=== PATIENT | female | born 1935 | race Caucasian/White ===

== ENCOUNTER 2017-03-09 09:05 | Emergency (ER) | payer MEDICARE, OTHER ==
--- NOTE | 2017-03-09 09:41 | ER Document Report ---
Doctor's Note Notes: 03/09/17 09:40 81-year-old female presents with complaints of shortness of breath productive cough over the past few days. Patient denies any history of COPD asthma or respiratory issues. Patient receives IVIG. Patient is not on oxygen at home Patient satting 89% on room air on arrival I have greeted and performed a rapid initial assessment of this patient. A comprehensive ED assessment and evaluation of the patient, analysis of test results and completion of the medical decision making process will be conducted by additional ED providers. PHYSICAL EXAMINATION: GENERAL: Well-appearing, well-nourished and in no acute distress. Patient is satting 89% on room air noted to be 98% on 2 L nasal cannula HEAD: Atraumatic, normocephalic. EYES: Pupils equal round extraocular movements intact, conjunctiva are normal. ENT: Nares patent NECK: Normal range of motion LUNGS: Rhonchorous at the bases no respiratory distress Musculoskeletal: Normal range of motion NEUROLOGICAL: Normal speech, normal gait. PSYCH: Normal mood, normal affect. SKIN: Warm, Dry, normal turgor, no rashes or lesions noted.
--- NOTE | 2017-03-09 10:39 | ER Document Report ---
ED Respiratory Problem - General Chief Complaint: Cough Stated Complaint: COUGH Notes: Patient is an 81-year-old female nonsmoker who presents emergency Department complaining of productive cough, shortness of breath, BRYANT since Saturday. She denies any fevers but admits to chills. Denies any history of COPD, asthma. Patient does receive IVIG for her chronic idiopathic demyelinating polyneuropathy. Past medical history significant for hypothyroidism, GERD, CIDP, hiatal hernia Past surgical history significant for close hysterectomy, hiatal hernia reduction, stress test December 2015 Social history denies any tobacco use, alcohol or drug use. Allergies to amoxicillin primary care provider is Dr. Tyler TRAVEL OUTSIDE OF THE [place] IN LAST 30 DAYS: No - Related Data Allergies/Adverse Reactions: amoxicillin [Amoxicillin] Allergy (Severe, Verified 03/09/17 09:33) rash cephalexin monohydrate [From Keflex] Allergy (Severe, Verified 03/09/17 09:33) rash sulfamethoxazole [From Bactrim] Allergy (Severe, Verified 03/09/17 09:33) rash trimethoprim [From Bactrim] Allergy (Severe, Verified 03/09/17 09:33) rash eggs Allergy (Intermediate, Uncoded 03/09/17 09:33) N&V Past Medical History - Social History Smoking Status: Never Smoker Chew tobacco use (# tins/day): No Frequency of alcohol use: None Drug Abuse: None Family History: Other - Not reviewed at this time. Patient has suicidal ideation: No Patient has homicidal ideation: No - Past Medical History Cardiac Medical History: Reports: Hx Hypercholesterolemia - meds x 2 years Denies: Hx Atrial Fibrillation, Hx Congestive Heart Failure, Hx Coronary Artery Disease, Hx Heart Attack, Hx Hypertension, Hx Peripheral Vascular Disease , Hx Pulmonary Embolism, Hx Heart Murmur Pulmonary Medical History: Reports: Hx Pneumonia - "years ago" s, hospitalized x 1 day Denies: Hx Asthma, Hx Bronchitis, Hx COPD, Hx Respiratory Failure, Hx Sleep Apnea, Hx Tuberculosis Neurological Medical History: Denies: Hx Cerebrovascular Accident, Hx Seizures Renal/ Medical History: Reports: Hx Kidney Stones - "passed", no surgery required. Denies: Hx End Stage Renal Disease, Hx Peritoneal Dialysis Malignancy Medical History: Denies: Hx Leukemia, Hx Lung Cancer GI Medical History: Reports: Hx Gastritis, Hx Gastroesophageal Reflux Disease, Hx Hiatal Hernia - per chest CT 02/01/11. Denies: Hx Crohn's Disease, Hx Irritable Bowel, Hx Liver Failure, Hx Ulcer Musculoskeltal Medical History: Reports Hx Arthritis, Denies Hx Fibromyalgia, Denies Hx Muscular Dystrophy Traumatic Medical History: Denies: Hx Fractures Infectious Medical History: Denies: Hx HIV Past Surgical History: Reports: Hx Cholecystectomy - laparoscopic, Hx Hysterectomy, Hx Orthopedic Surgery - knee replacement. Denies: Hx Appendectomy , Hx Bowel Surgery, Hx Section, Hx Colostomy, Hx Coronary Artery Bypass Graft, Hx Gastric Bypass Surgery, Hx Herniorrhaphy, Hx Mastectomy, Hx Pacemaker, Hx Tonsillectomy, Hx Tubal Ligation - Immunizations Immunizations up to date: Yes Hx Diphtheria, Pertussis, Tetanus Vaccination: Yes Hx Pneumococcal Vaccination: 08/13/13 Review of Systems - Review of Systems Constitutional: See HPI EENT: No symptoms reported Cardiovascular: No symptoms reported Respiratory: See HPI Gastrointestinal: No symptoms reported Genitourinary: No symptoms reported -: Yes All other systems reviewed and negative Physical Exam - Vital signs Vitals: Temp Pulse Resp BP Pulse Ox 98.3 F 68 19 122/57 L 89 L 03/09/17 09:18 03/09/17 09:18 03/09/17 09:18 03/09/17 09:18 03/09/17 09:18 Interpretation: Hypoxic - Notes Notes: PHYSICAL EXAM GENERAL: Alert, interacts well. HEAD: Normocephalic, atraumatic. EYES: Pupils equal, round, and reactive to light. Extraocular movements intact. ENT: Oral mucosa moist, tongue midline. NECK: Full range of motion. Supple. Trachea midline. LUNGS: Clear to auscultation bilaterally, no wheezes, rales, or rhonchi. No respiratory distress. HEART: Regular rate and rhythm. No murmurs, gallops, or rubs. ABDOMEN: Soft, nondistended, nontender. No guarding, rebound, or rigidity.. Bowel sounds present in all 4 quadrants. EXTREMITIES: Moves all 4 extremities spontaneously. No edema, radial and dorsalis pedis pulses 2/4 bilaterally. No cyanosis. NEUROLOGICAL: Alert and oriented x4. Normal speech. PSYCH: Normal affect, normal mood. SKIN: Warm, dry, normal turgor. No rashes or lesions noted. Course - Re-evaluation Re-evalutation: 03/09/17 18:07 patient is a 81 year old female who is hemodynamically stable, no acute distress and afebrile. Patient was satting 100% on 1 L nasal cannula. Weaned off in satting 96% on room air. No evidence of leukocytosis, anemia on CBC, electrolyte abnormalities, abnormal renal/hepatic/pancreatic function. UA with leuk esterase with minimal bacteria. Sent for urine culture. Chem shows elevated BNP at 2300. Patient without CXR evidence of CHF. Patient has ambulated in the department without O2 and maintaining oxygen sats at 96%. Will discharge patient home on short course of lasix and instruction to follow up with PCP - Vital Signs Vital signs: Temp Pulse Resp BP Pulse Ox 97.2 F 74 16 126/64 H 96 03/09/17 15:04 03/09/17 15:04 03/09/17 15:04 03/09/17 15:04 03/09/17 15:04 - Laboratory Result Diagrams: 03/09/17 10:50 03/09/17 10:50 Laboratory results interpreted by me: 03/09/17 03/09/17 03/09/17 10:50 10:50 10:50 Seg Neutrophils % 78.1 H Glucose 111 H AST 69 H Alkaline Phosphatase 143 H NT-Pro-B Natriuret Pep 2320 H Total Protein 8.8 H Urine Protein Urine Urobilinogen Ur Leukocyte Esterase Urine Ascorbic Acid 03/09/17 13:25 Seg Neutrophils % Glucose AST Alkaline Phosphatase NT-Pro-B Natriuret Pep Total Protein Urine Protein 30 H Urine Urobilinogen 2.0 H Ur Leukocyte Esterase MODERATE H Urine Ascorbic Acid 40 H - Diagnostic Test Radiology reviewed: Image reviewed, Reports reviewed - EKG Interpretation by Me EKG shows normal: Sinus rhythm Rate: Normal Rhythm: NSR When compared to previous EKG there are: No significant change Discharge - Discharge Clinical Impression: Cough Condition: Good Disposition: HOME, SELF-CARE Additional Instructions: You have evidence of fluid retention, this may be due to heart failure You need to follow up with your primary care physician Dr. Tyler this coming week Please take the lasix as prescribed Prescriptions: Furosemide [Lasix] 20 mg PO DAILY #3 tablet Referrals: TRISTON TYLER MD [Primary Care Provider] - Follow up in 3-5 days
[2017-03-09 11:19] LABS: PROTHROMBIN TIME 13.7 SEC (11.4-15.4)
[2017-03-09 11:22] LABS: ABSOLUTE EOSINOPHILS # (AUTO) 0.1 10^3/uL (0.0-0.6); ABSOLUTE LYMPHOCYTES (AUTO) 1.3 10^3/uL (0.5-4.7); ABSOLUTE MONOCYTES (AUTO) 0.7 10^3/uL (0.1-1.4); ABSOLUTE NEUT (AUTO) 7.5 10^3/uL (1.7-8.2); BASOPHILS % (AUTO) 0.2 % (0-2); EOSINOPHILS % (AUTO) 0.6 % (0-6); HEMOGLOBIN 12.8 g/dL (12.0-15.5); HGB HCT DIFFERENCE 1.4; LYMPHOCYTES % (AUTO) 13.4 % (13-45); MEAN CORPUSCULAR HEMOGLOBIN 31.4 pg (27.0-33.4); MEAN CORPUSCULAR HGB CONC 34.5 g/dL (32.0-36.0); MEAN CORPUSCULAR VOLUME 91 fl (80-97); MONOCYTES % (AUTO) 7.7 % (3-13); RED BLOOD COUNT 4.08 10^6/uL (3.72-5.28); RED CELL DISTRIBUTION WIDTH 13.2 % (11.5-14.0); SEGMENTED NEUTROPHILS % (AUTO) 78.1 % (42-78); WHITE BLOOD COUNT 9.6 10^3/uL (4.0-10.5)
[2017-03-09 11:40] LABS: ALANINE AMINOTRANSFERASE 46 U/L (9-52); ALBUMIN 3.9 g/dL (3.5-5.0); ALKALINE PHOSPHATASE 143 U/L (38-126); ANION GAP 15 (5-19); ASPARTATE AMINO TRANSFERASE 69 U/L (14-36); BILIRUBIN,DIRECT 0.4 mg/dL (0.0-0.4); BLOOD UREA NITROGEN 15 mg/dL (7-20); CALCIUM 9.2 mg/dL (8.4-10.2); CARBON DIOXIDE 24 mmol/L (22-30); CHLORIDE 103 mmol/L (98-107); CREATININE RESULT 0.79 mg/dL (0.52-1.25); GLUCOSE 111 mg/dL (75-110); SODIUM 142.4 mmol/L (137-145); TOTAL PROTEIN 8.8 g/dL (6.3-8.2)
[2017-03-09 12:18] LABS: VENOUS BLOOD HCO3 27.1 mmol/L (20-32); VENOUS BLOOD PCO2 49.5 mmHg (35-63); VENOUS BLOOD PH 7.36 (7.30-7.42)
[2017-03-09] MEDS ORDERED: IPRATROPIUM/ALBUTEROL 0.5-2.5 MG/3 ML AMPUL NEB ONE (12:41)
[2017-03-09 14:11] LABS: APPEARANCE,URINE SLIGHTLY-CLOUDY; BILIRUBIN,URINE NEGATIVE (NEGATIVE); GLUCOSE, URINE NEGATIVE (NEGATIVE); KETONES,URINE NEGATIVE (NEGATIVE); LEUKOCYTE ESTERASE,URINE MODERATE (NEGATIVE); NITRITE,URINE NEGATIVE (NEGATIVE); PROTEIN,URINE 30 mg/dL (NEGATIVE); URINE SPECIFIC GRAVITY 1.017
[2017-03-09] MEDS ORDERED: FUROSEMIDE 20 MG TABLET PO ONE (14:35)
[2017-03-09 16:27] VITALS: BP 126/64
--- NOTE | 2017-03-10 10:22 | EKG REPORT ---
SEVERITY:- ABNORMAL ECG - SINUS RHYTHM LEFT VENTRICULAR HYPERTROPHY INFERIOR INFARCT, AGE INDETERMINATE ANTEROLATERAL Q WAVES, PROBABLY DUE TO LVH : Confirmed by: Lisa Trujillo 10-Mar-2017 10:22:31
== END 2017-03-09 15:05 | disposition home or self-care (01) ==
LOC: ER 09:05
DX: R05 Cough (principal); R06.02 Shortness of breath; E03.9 Hypothyroidism, unspecified; K21.9 Gastro-esophageal reflux disease without esophagitis
CPT/HCPCS: 93005; 94640; 99284; 36415; 87040; 87086; 84443; 85025; 85610; 80053; 81001; 82803; 83605; 83880; 71010; 93010; A9270 ×2; J7620

== ENCOUNTER → 2017-03-13 | Outpatient (CLI) | payer MEDICARE, OTHER ==
[2017-03-13 15:05] LABS: ALANINE AMINOTRANSFERASE 34 U/L (9-52); ALBUMIN 3.5 g/dL (3.5-5.0); ALKALINE PHOSPHATASE 108 U/L (38-126); ANION GAP 17 (5-19); ASPARTATE AMINO TRANSFERASE 44 U/L (14-36); BILIRUBIN,DIRECT 0.4 mg/dL (0.0-0.4); BILIRUBIN,TOTAL 0.7 mg/dL (0.2-1.3); BLOOD UREA NITROGEN 11 mg/dL (7-20); CARBON DIOXIDE 25 mmol/L (22-30); CHLORIDE 100 mmol/L (98-107); CREATININE RESULT 0.81 mg/dL (0.52-1.25); GLUCOSE 109 mg/dL (75-110); POTASSIUM 4.2 mmol/L (3.6-5.0); SODIUM 142.3 mmol/L (137-145); TOTAL PROTEIN 8.2 g/dL (6.3-8.2)
== END ==
LOC: OD 13:50
PROVIDERS: ATTEND Obstetrics & Gynecology
DX: I50.20 Unspecified systolic (congestive) heart failure (principal)
CPT/HCPCS: 36415; 71020; 80053; 83880

== ENCOUNTER → 2017-03-18 | Outpatient (CLI) | payer MEDICARE, OTHER ==
[2017-03-18 14:29] LABS: HEMATOCRIT 33.3 % (36.0-47.0); HEMOGLOBIN 11.3 g/dL (12.0-15.5); HGB HCT DIFFERENCE 0.6; MEAN CORPUSCULAR HGB CONC 33.9 g/dL (32.0-36.0); MEAN CORPUSCULAR VOLUME 91 fl (80-97); RED BLOOD COUNT 3.65 10^6/uL (3.72-5.28); RED CELL DISTRIBUTION WIDTH 13.5 % (11.5-14.0); WHITE BLOOD COUNT 6.5 10^3/uL (4.0-10.5)
[2017-03-18 14:47] LABS: ALANINE AMINOTRANSFERASE 38 U/L (9-52); ALBUMIN 3.3 g/dL (3.5-5.0); ALKALINE PHOSPHATASE 126 U/L (38-126); ANION GAP 14 (5-19); ASPARTATE AMINO TRANSFERASE 46 U/L (14-36); BILIRUBIN,DIRECT 0.4 mg/dL (0.0-0.4); BILIRUBIN,TOTAL 0.6 mg/dL (0.2-1.3); BLOOD UREA NITROGEN 10 mg/dL (7-20); CARBON DIOXIDE 27 mmol/L (22-30); CHLORIDE 101 mmol/L (98-107); CREATININE RESULT 0.75 mg/dL (0.52-1.25); GLUCOSE 99 mg/dL (75-110); POTASSIUM 4.2 mmol/L (3.6-5.0); SODIUM 142.4 mmol/L (137-145); TOTAL PROTEIN 7.8 g/dL (6.3-8.2)
== END ==
LOC: OD 13:49
PROVIDERS: ATTEND Obstetrics & Gynecology
DX: R42 Dizziness and giddiness (principal); E03.9 Hypothyroidism, unspecified; I50.21 Acute systolic (congestive) heart failure
CPT/HCPCS: 36415; 80053; 83880; 84443; 85027

== ENCOUNTER 2017-12-18 15:24 | Emergency (ER) | payer MEDICARE, OTHER ==
[2017-12-18] MEDS ORDERED: NORMAL SALINE 1000 ML 1,000 ML IV ONE (17:37)
--- NOTE | 2017-12-18 17:38 | ER Document Report ---
ED Medical Screen (RME) - General Chief Complaint: Nose Bleed Stated Complaint: NOSE BLEED AND LIGHT HEADEDNESS Time Seen by Provider: 12/18/17 17:37 Mode of Arrival: Ambulatory Information source: Patient Notes: Patient states she has been lightheaded and dizzy today with some nosebleeds. She states she normally has high blood pressure and takes blood pressure medications. TRAVEL OUTSIDE OF THE [place] IN LAST 30 DAYS: No - Related Data Allergies/Adverse Reactions: amoxicillin [Amoxicillin] Allergy (Severe, Verified 12/18/17 15:24) rash cephalexin monohydrate [From Keflex] Allergy (Severe, Verified 12/18/17 15:24) rash sulfamethoxazole [From Bactrim] Allergy (Severe, Verified 12/18/17 15:24) rash trimethoprim [From Bactrim] Allergy (Severe, Verified 12/18/17 15:24) rash eggs Allergy (Intermediate, Uncoded 12/18/17 15:24) N&V Past Medical History - Social History Chew tobacco use (# tins/day): No Frequency of alcohol use: None Drug Abuse: None - Past Medical History Cardiac Medical History: Reports: Hx Hypercholesterolemia - meds x 2 years Denies: Hx Atrial Fibrillation, Hx Congestive Heart Failure, Hx Coronary Artery Disease, Hx Heart Attack, Hx Hypertension, Hx Peripheral Vascular Disease , Hx Pulmonary Embolism, Hx Heart Murmur Pulmonary Medical History: Reports: Hx Pneumonia - "years ago" 1959's, hospitalized x 1 day Denies: Hx Asthma, Hx Bronchitis, Hx COPD, Hx Respiratory Failure, Hx Sleep Apnea, Hx Tuberculosis Neurological Medical History: Denies: Hx Cerebrovascular Accident, Hx Seizures Renal/ Medical History: Reports: Hx Kidney Stones - "passed", no surgery required. Denies: Hx End Stage Renal Disease, Hx Peritoneal Dialysis Malignancy Medical History: Denies: Hx Leukemia, Hx Lung Cancer GI Medical History: Reports: Hx Gastritis, Hx Gastroesophageal Reflux Disease, Hx Hiatal Hernia - per chest CT 02/01/11. Denies: Hx Crohn's Disease, Hx Irritable Bowel, Hx Liver Failure, Hx Pancreatitis, Hx Ulcer Musculoskeltal Medical History: Reports Hx Arthritis, Denies Hx Fibromyalgia, Denies Hx Muscular Dystrophy Traumatic Medical History: Denies: Hx Fractures Infectious Medical History: Denies: Hx HIV Past Surgical History: Reports: Hx Cholecystectomy - laparoscopic, Hx Hysterectomy, Hx Orthopedic Surgery - knee replacement. Denies: Hx Appendectomy , Hx Bowel Surgery, Hx Section, Hx Colostomy, Hx Coronary Artery Bypass Graft, Hx Gastric Bypass Surgery, Hx Herniorrhaphy, Hx Mastectomy, Hx Pacemaker, Hx Tonsillectomy, Hx Tubal Ligation - Immunizations Immunizations up to date: Yes Hx Diphtheria, Pertussis, Tetanus Vaccination: Yes Physical Exam - Vital signs Vitals: Temp Pulse Resp BP Pulse Ox 98.2 F 94 22 H 85/66 L 99 12/18/17 15:40 12/18/17 15:40 12/18/17 15:40 12/18/17 15:40 12/18/17 15:40 Course - Vital Signs Vital signs: Temp Pulse Resp BP Pulse Ox 98.2 F 94 22 H 85/66 L 99 12/18/17 15:40 12/18/17 15:40 12/18/17 15:40 12/18/17 15:40 12/18/17 15:40
[2017-12-18 18:32] LABS: ABSOLUTE EOSINOPHILS # (AUTO) 0.1 10^3/uL (0.0-0.6); ABSOLUTE LYMPHOCYTES (AUTO) 2.1 10^3/uL (0.5-4.7); ABSOLUTE MONOCYTES (AUTO) 0.7 10^3/uL (0.1-1.4); ABSOLUTE NEUT (AUTO) 1.8 10^3/uL (1.7-8.2); BASOPHILS % (AUTO) 0.7 % (0-2); EOSINOPHILS % (AUTO) 1.2 % (0-6); HEMATOCRIT 34.7 % (36.0-47.0); HEMOGLOBIN 11.6 g/dL (12.0-15.5); MEAN CORPUSCULAR HEMOGLOBIN 28.9 pg (27.0-33.4); MEAN CORPUSCULAR HGB CONC 33.3 g/dL (32.0-36.0); MEAN CORPUSCULAR VOLUME 87 fl (80-97); MONOCYTES % (AUTO) 14.7 % (3-13); PLATELET COUNT 283 10^3/uL (150-450); RED BLOOD COUNT 3.99 10^6/uL (3.72-5.28); RED CELL DISTRIBUTION WIDTH 15.5 % (11.5-14.0); SEGMENTED NEUTROPHILS % (AUTO) 38.4 % (42-78); TOTAL CELLS COUNTED % (AUTO) 100 %; WHITE BLOOD COUNT 4.8 10^3/uL (4.0-10.5)
[2017-12-18 19:27] LABS: APPEARANCE,URINE SLIGHTLY-CLOUDY; BILIRUBIN,URINE NEGATIVE (NEGATIVE); COLOR,URINE YELLOW; GLUCOSE, URINE NEGATIVE (NEGATIVE); KETONES,URINE NEGATIVE (NEGATIVE); LEUKOCYTE ESTERASE,URINE TRACE (NEGATIVE); NITRITE,URINE NEGATIVE (NEGATIVE); PROTEIN,URINE NEGATIVE (NEGATIVE); URINE SPECIFIC GRAVITY 1.015; UROBILINOGEN,URINE NEGATIVE mg/dL (<2.0)
[2017-12-18 20:20] LABS: ALANINE AMINOTRANSFERASE 18 U/L (9-52); ALBUMIN 4.1 g/dL (3.5-5.0); ALKALINE PHOSPHATASE 78 U/L (38-126); ANION GAP 10 (5-19); ASPARTATE AMINO TRANSFERASE 35 U/L (14-36); BILIRUBIN,DIRECT 0.1 mg/dL (0.0-0.4); BILIRUBIN,TOTAL 0.3 mg/dL (0.2-1.3); BLOOD UREA NITROGEN 15 mg/dL (7-20); CALCIUM 9.4 mg/dL (8.4-10.2); CARBON DIOXIDE 27 mmol/L (22-30); CHLORIDE 104 mmol/L (98-107); GLUCOSE 89 mg/dL (75-110); SODIUM 141.4 mmol/L (137-145); TOTAL PROTEIN 7.7 g/dL (6.3-8.2)
--- NOTE | 2017-12-18 21:03 | ER Document Report ---
ED General - General Chief Complaint: Nose Bleed Stated Complaint: NOSE BLEED AND LIGHT HEADEDNESS Time Seen by Provider: 12/18/17 17:37 Mode of Arrival: Ambulatory Notes: 82-year-old female presented ED for lightheadedness dizziness and some nosebleeds. She states the nosebleed has been stopped since morning time. She stated she was no longer lightheaded or dizzy while in the emergency room but when she was sitting up in the front she did feel lightheaded. Blood pressure was stable when I examined her. TRAVEL OUTSIDE OF THE [place] IN LAST 30 DAYS: No - HPI Onset: This morning Onset/Duration: Better Quality of pain: No pain Severity: None Pain Level: Denies Associated symptoms: Other - Nosebleed dizziness when seen in the pit but not when I examined her in the emergency room Exacerbated by: Denies Relieved by: Denies Similar symptoms previously: Yes Recently seen / treated by doctor: Yes - Related Data Allergies/Adverse Reactions: amoxicillin [Amoxicillin] Allergy (Severe, Verified 12/18/17 15:24) rash cephalexin monohydrate [From Keflex] Allergy (Severe, Verified 12/18/17 15:24) rash sulfamethoxazole [From Bactrim] Allergy (Severe, Verified 12/18/17 15:24) rash trimethoprim [From Bactrim] Allergy (Severe, Verified 12/18/17 15:24) rash eggs Allergy (Intermediate, Uncoded 12/18/17 15:24) N&V Past Medical History - General Information source: Patient - Social History Smoking Status: Never Smoker Chew tobacco use (# tins/day): No Frequency of alcohol use: None Drug Abuse: None Lives with: Family Family History: Other - Not reviewed at this time. Patient has suicidal ideation: No Patient has homicidal ideation: No - Past Medical History Cardiac Medical History: Reports: Hx Hypercholesterolemia - meds x 2 years Pulmonary Medical History: Reports: Hx Pneumonia - "years ago" 1960's, hospitalized x 1 day EENT Medical History: Reports: None Neurological Medical History: Reports: None Endocrine Medical History: Reports: None Renal/ Medical History: Reports: Hx Kidney Stones - "passed", no surgery required Malignancy Medical History: Reports: None GI Medical History: Reports: Hx Gastritis, Hx Gastroesophageal Reflux Disease, Hx Hiatal Hernia - per chest CT 02/01/11 Musculoskeltal Medical History: Reports Hx Arthritis Skin Medical History: Reports None Psychiatric Medical History: Reports: None Traumatic Medical History: Reports: None Infectious Medical History: Reports: None Past Surgical History: Reports: Hx Cholecystectomy - laparoscopic, Hx Hysterectomy, Hx Orthopedic Surgery - knee replacement - Immunizations Immunizations up to date: Yes Hx Diphtheria, Pertussis, Tetanus Vaccination: Yes Hx Pneumococcal Vaccination: 08/13/13 Review of Systems - Review of Systems Constitutional: No symptoms reported EENT: Other - Nosebleed in the morning none in the emergency room Cardiovascular: Dizziness - When seen in pit not when seen in the ED, Lightheaded Respiratory: No symptoms reported Gastrointestinal: No symptoms reported Genitourinary: No symptoms reported Female Genitourinary: No symptoms reported Musculoskeletal: No symptoms reported Skin: No symptoms reported Hematologic/Lymphatic: No symptoms reported Neurological/Psychological: No symptoms reported -: Yes All other systems reviewed and negative Physical Exam - Vital signs Vitals: Temp Pulse Resp BP Pulse Ox 98.2 F 94 22 H 85/66 L 99 12/18/17 15:40 12/18/17 15:40 12/18/17 15:40 12/18/17 15:40 12/18/17 15:40 Interpretation: Normal - General General appearance: Appears well, Alert - HEENT Head: Normocephalic, Atraumatic Eyes: Normal Pupils: PERRL - Respiratory Respiratory status: No respiratory distress Chest status: Nontender Breath sounds: Normal Chest palpation: Normal - Cardiovascular Rhythm: Regular Heart sounds: Normal auscultation Murmur: No - Abdominal Inspection: Normal Distension: No distension Bowel sounds: Normal Tenderness: Nontender Organomegaly: No organomegaly - Back Back: Normal, Nontender - Extremities General upper extremity: Normal inspection, Nontender, Normal color, Normal ROM , Normal temperature General lower extremity: Normal inspection, Nontender, Normal color, Normal ROM , Normal temperature, Normal weight bearing. No: Aydee's sign - Neurological Neuro grossly intact: Yes Cognition: Normal Orientation: AAOx4 [place] Coma Scale Eye Opening: Spontaneous [place] Coma Scale Verbal: Oriented [place] Coma Scale Motor: Obeys Commands [place] Coma Scale Total: 15 Speech: Normal Motor strength normal: LUE, RUE, LLE, RLE Sensory: Normal - Psychological Associated symptoms: Normal affect, Normal mood - Skin Skin Temperature: Warm Skin Moisture: Dry Skin Color: Normal Course - Re-evaluation Re-evalutation: 12/19/17 08:43 Discussed labs and assessment with Dr. Antoine as he had seen the patient in [facility]. He reviewed the lab results stated that it would be okay for the patient to be discharged home. The patient was discharged home around 9 PM. - Vital Signs Vital signs: Temp Pulse Resp BP Pulse Ox 97.9 F 94 15 124/63 98 12/18/17 21:15 12/18/17 15:40 12/18/17 21:01 12/18/17 21:01 12/18/17 21:01 - Laboratory Result Diagrams: 12/18/17 18:14 12/18/17 19:35 Laboratory results interpreted by me: 12/18/17 12/18/17 18:14 19:00 Hgb 11.6 L Hct 34.7 L RDW 15.5 H Seg Neutrophils % 38.4 L Monocytes % 14.7 H Urine Blood SMALL H Ur Leukocyte Esterase TRACE H Discharge - Discharge Clinical Impression: Bleeding nose Condition: Stable Disposition: HOME, SELF-CARE Additional Instructions: Nosebleed Instructions There is a significant chance of re-bleeding following a nosebleed. Proper care makes this less likely. Do not touch the nose for 24 hours. Do not blow the nose forcefully for one week. After 24 hours, gently apply Vaseline ointment to both nostrils with the tip of a finger, three times a day, for one week. It's normal to have a bloody mucous discharge for a few days. If active bleeding recurs, blow all the blood from the nose, then sit quietly and pinch the nose as firmly as possible for 10 minutes. If this does not stop the bleeding, return for further care. If packing was left in the nose and it starts to come out of the nostril, either tuck it back in or cut it off. Don't pull it out. Return for recheck and removal of the packing when instructed. Persons with frequent nosebleeds should avoid aspirin (unless prescribed for another reason). Humidity in the bedroom, and petroleum jelly applied to the nostrils at night may help. DIZZINESS: Under normal circumstances, your sense of balance is controlled by a number of signals that your brain receives from several locations: Eyes. No matter what your position, visual signals help you determine where your body is in space and how it's moving. Sensory nerves. These are in your skin, muscles and joints. Sensory nerves send messages to your brain about body movements and positions. Inner ear. The organ of balance in your inner ear is the vestibular labyrinth. It includes loop-shaped structures (semicircular canals) that contain fluid and fine, hair-like sensors that monitor the rotation of your head. Near the semicircular canals are the utricle and saccule, which contain tiny particles called otoconia ([id number]). These particles are attached to sensors that help detect gravity and acwa-ogj-zkjfo motion. Good balance depends on at least two of these three sensory systems working well. For instance, closing your eyes while washing your hair in the shower doesn't mean you'll lose your balance. Signals from your inner ear and sensory nerves help keep you upright. However, if your central nervous system can't process signals from all of these locations, if the messages are contradictory, or if the sensory systems aren't functioning properly, you may experience loss of balance. Dizziness may have a number of potential causes. These may include: Vertigo Vertigo - the false sense of motion or spinning - is the most common symptom of dizziness. Sitting up or moving around may make it worse. Sometimes vertigo is severe enough to cause nausea and vomiting. Vertigo usually results from a problem with the nerves and the structures of the balance mechanism in your inner ear (vestibular system), which sense movement and changes in your head position. Abnormal rhythmic eye movements ( nystagmus) almost always accompany vertigo. Causes of vertigo may include: Benign paroxysmal positional vertigo (BPPV). BPPV involves intense, brief episodes of vertigo associated with a change in the position of your head, often when you turn over in bed or sit up in the morning. It occurs when normal calcium carbonate crystals (otoconia) break loose and fall into the wrong part of the canals in your inner ear. When these particles shift, they stimulate sensors in your ear, producing an episode of vertigo. Doctors don't know what causes BPPV, but it may be a natural result of aging. Trauma to your head also may lead to BPPV. Inflammation in the inner ear. Signs and symptoms of inflammation of the inner ear (acute vestibular neuronitis or labyrinthitis) include sudden, intense vertigo that may persist for several days, with nausea and vomiting. It can be incapacitating, requiring bed rest to minimize the signs and symptoms. Fortunately, vestibular neuronitis generally subsides and clears up on its own. Recovery time may be shorter with vestibular rehabilitation exercises. Although the cause of this condition is unknown, it may be a viral infection. Meniere's disease. This disease involves the excessive buildup of fluid in your inner ear. It may affect adults at any age and is characterized by sudden episodes of vertigo lasting 30 minutes to an hour or longer. Other signs and symptoms include the feeling of fullness in your ear, buzzing or ringing in your ear (tinnitus), and fluctuating hearing loss. The cause of Meniere's disease is unknown. Vestibular migraine. People who experience a vestibular migraine are very sensitive to motion. Dizziness and vertigo caused by a vestibular migraine may be triggered by turning your head quickly, being in a crowded or confusing place , driving or riding in a vehicle, or even watching movement on TV. A vestibular migraine may cause feelings of imbalance or unsteadiness, hearing loss, "muffled " hearing, or ringing in your ears (tinnitus). For most people with a vestibular migraine, vertigo doesn't necessarily happen at the same time as the headache. Instead, typical migraine triggers may lead to vertigo without an actual migraine. Attacks of migrainous vertigo can last from a few minutes to several days. Acoustic neuroma. An acoustic neuroma (schwannoma) is a noncancerous (benign ) growth on the acoustic nerve, which connects the inner ear to your brain. Signs and symptoms of an acoustic neuroma may include dizziness, loss of balance , hearing loss and tinnitus. Rapid changes in motion. Riding on roller coasters or in boats, cars or even airplanes may on occasion make you dizzy. Other causes. Rarely, vertigo can be a symptom of a more serious neurological problem such as a stroke, brain hemorrhage or multiple sclerosis. Feeling of faintness (presyncope) "Presyncope" is the medical term for feeling faint and lightheaded without losing consciousness. Sometimes nausea, pale skin and a sense of dizziness accompany a feeling of faintness. Causes of presyncope include: Drop in blood pressure (orthostatic hypotension). A dramatic drop in your systolic blood pressure - the higher number in your blood pressure reading - may result in lightheadedness or a feeling of faintness. It can occur after sitting up or standing too quickly. Inadequate output of blood from the heart. Conditions such as partially blocked arteries (atherosclerosis), disease of the heart muscle (cardiomyopathy) , abnormal heart rhythm (arrhythmia) or a decrease in blood volume may cause inadequate blood flow from your heart. Loss of balance (disequilibrium) Disequilibrium is the loss of balance or the feeling of unsteadiness when you walk. Causes may include: Inner ear (vestibular) problems. Abnormalities with your inner ear can cause you to feel like you are floating, have a heavy head or are unsteady in the dark. Sensory disorders. Failing vision and nerve damage in your legs (peripheral neuropathy) are common in older adultsand may result in difficulty maintaining your balance. Joint and muscle problems. Muscle weakness and osteoarthritis - the type of arthritis that involves wear and tear of your joints - can contribute to loss of balance when it involves your weight-bearing joints. Medications. Loss of balance can be a side effect of certain medications, such as anti-seizure drugs, sedatives and tranquilizers. Lightheadedness and other kinds of dizziness Feeling lightheaded is the feeling of being "spaced out" or having the sensation of spinning inside your head. It can also give you the sensation that if your lightheadedness worsens, you might lose consciousness. Causes may include: Inner ear disorders. These abnormalities of your inner ear can lead to illusions of motion and make you feel like you're floating. Anxiety disorders. Certain anxiety disorders, such as panic attacks and a fear of leaving home or being in large, open spaces (agoraphobia), may cause lightheadedness. Hyperventilation. Abnormally rapid breathing that often accompanies anxiety disorders may make you feel lightheaded. NORMAL EXAM AND WORKUP: At this time, your examination and workup show no significant abnormality. No significant abnormal physical findings were noted. All laboratory, EKG, and imaging (x-ray, CT scans, ultrasound) studies that were ordered show no significant abnormality. Although your examination and all studies that were ordered showed no significant abnormal finding, there are no examinations and no studies that are 100% accurate. There is always the possibility that some abnormality could exist and not be detected with physical examination or within the limits and capabilities of laboratory and other studies. You should return or follow up as you were instructed on your visit today for further evaluation if your symptoms do not resolve. FOLLOW-UP CARE: If you have been referred to a physician for follow-up care, call the physician s office for an appointment as you were instructed or within the next two days. If you experience worsening or a significant change in your symptoms, notify the physician immediately or return to the Emergency Department at any time for re-evaluation. Referrals: TRISTON TYLER MD [Primary Care Provider] - Follow up tomorrow
[2017-12-18 21:15] VITALS: BP 124/63
--- NOTE | 2017-12-18 21:31 | EKG REPORT ---
SEVERITY:- ABNORMAL ECG - SINUS RHYTHM INFERIOR INFARCT, AGE INDETERMINATE CONSIDER ANTERIOR INFARCT : Confirmed by: Lisa Trujillo 18-Dec-2017 21:30:57
== END 2017-12-18 21:17 | disposition home or self-care (01) ==
LOC: ER 15:24
DX: R04.0 Epistaxis (principal); R42 Dizziness and giddiness; E78.00 Pure hypercholesterolemia, unspecified; Z88.0 Allergy status to penicillin; Z88.3 Allergy status to other anti-infective agents; Z87.442 Personal history of urinary calculi; Z90.49 Acquired absence of other specified parts of digestive tract; Z90.710 Acquired absence of both cervix and uterus
CPT/HCPCS: 93005; 99284; 96360; 36415; 87086; 85025; 80053; 81001; 84484; 93010; J7030

== ENCOUNTER 2018-05-07 07:59 | Emergency (ER) | payer MEDICARE, OTHER ==
[2018-05-07 09:33] LABS: ABSOLUTE LYMPHOCYTES (AUTO) 1.5 10^3/uL (0.5-4.7); ABSOLUTE MONOCYTES (AUTO) 0.5 10^3/uL (0.1-1.4); ABSOLUTE NEUT (AUTO) 1.4 10^3/uL (1.7-8.2); BASOPHILS % (AUTO) 0.4 % (0-2); EOSINOPHILS % (AUTO) 0.2 % (0-6); HEMATOCRIT 32.6 % (36.0-47.0); HEMOGLOBIN 10.6 g/dL (12.0-15.5); LYMPHOCYTES % (AUTO) 44.1 % (13-45); MEAN CORPUSCULAR HEMOGLOBIN 26.4 pg (27.0-33.4); MEAN CORPUSCULAR HGB CONC 32.5 g/dL (32.0-36.0); MEAN CORPUSCULAR VOLUME 81 fl (80-97); MONOCYTES % (AUTO) 14.2 % (3-13); PLATELET COUNT 245 10^3/uL (150-450); RED BLOOD COUNT 4.01 10^6/uL (3.72-5.28); RED CELL DISTRIBUTION WIDTH 17.7 % (11.5-14.0); SEGMENTED NEUTROPHILS % (AUTO) 41.1 % (42-78); TOTAL CELLS COUNTED % (AUTO) 100 %; WHITE BLOOD COUNT 3.5 10^3/uL (4.0-10.5)
[2018-05-07 09:46] LABS: ALANINE AMINOTRANSFERASE 24 U/L (9-52); ALBUMIN 3.9 g/dL (3.5-5.0); ALKALINE PHOSPHATASE 71 U/L (38-126); ANION GAP 12 (5-19); ASPARTATE AMINO TRANSFERASE 34 U/L (14-36); BILIRUBIN,DIRECT 0.3 mg/dL (0.0-0.4); BILIRUBIN,TOTAL 0.5 mg/dL (0.2-1.3); BLOOD UREA NITROGEN 13 mg/dL (7-20); CALCIUM 9.2 mg/dL (8.4-10.2); CARBON DIOXIDE 26 mmol/L (22-30); CHLORIDE 108 mmol/L (98-107); GLUCOSE 97 mg/dL (75-110); LIPASE 351.1 U/L (23-300); POTASSIUM 4.3 mmol/L (3.6-5.0); SODIUM 145.8 mmol/L (137-145); TOTAL PROTEIN 8.5 g/dL (6.3-8.2)
--- NOTE | 2018-05-07 10:19 | ER Document Report ---
ED GI/ - General Mode of Arrival: Ambulatory Information source: Patient TRAVEL OUTSIDE OF THE [place] IN LAST 30 DAYS: No <REJI FREITAS - Last Filed: 05/07/18 13:06> <LUCAS KIM - Last Filed: 05/08/18 06:25> - General Chief Complaint: Abdominal Pain Stated Complaint: RIGHT SIDE PAIN Time Seen by Provider: 05/07/18 09:47 Notes: Patient is an 82-year-old female who presents to the emergency department today with complaints of right lower quadrant abdominal pain which began yesterday. Patient states throughout the night her pain became worse and she was unable to sleep secondary to this pain. Patient describes the pain as sharp and nonradiating. Patient states she has been having normal bowel movements, she is not concerned with constipation. Patient denies any diarrhea, usage of blood thinners, fevers, chills, vomiting, nausea, or chest pain. (REJI FREITAS) - Related Data Allergies/Adverse Reactions: amoxicillin [Amoxicillin] Allergy (Severe, Verified 12/18/17 15:24) rash cephalexin monohydrate [From Keflex] Allergy (Severe, Verified 12/18/17 15:24) rash sulfamethoxazole [From Bactrim] Allergy (Severe, Verified 12/18/17 15:24) rash trimethoprim [From Bactrim] Allergy (Severe, Verified 12/18/17 15:24) rash eggs Allergy (Intermediate, Uncoded 12/18/17 15:24) N&V Past Medical History - General Information source: Patient - Social History Smoking Status: Never Smoker Cigarette use (# per day): No Frequency of alcohol use: None Drug Abuse: None Lives with: Family Family History: Reviewed & Not Pertinent, Other - Not reviewed at this time. Patient has suicidal ideation: No Patient has homicidal ideation: No - Past Medical History Cardiac Medical History: Reports: Hx Congestive Heart Failure, Hx Hypercholesterolemia - meds x 2 years Pulmonary Medical History: Reports: Hx Pneumonia - "years ago" 1959's, hospitalized x 1 day Renal/ Medical History: Reports: Hx Kidney Stones - "passed", no surgery required GI Medical History: Reports: Hx Gastritis, Hx Gastroesophageal Reflux Disease, Hx Hiatal Hernia - per chest CT 02/01/11 Musculoskeltal Medical History: Reports Hx Arthritis Infectious Medical History: Past Surgical History: Reports: Hx Abdominal Surgery - hernia repair, Hx Cholecystectomy - laparoscopic, Hx Hysterectomy, Hx Orthopedic Surgery - knee replacement pauly - Immunizations Immunizations up to date: Yes Hx Diphtheria, Pertussis, Tetanus Vaccination: Yes Hx Pneumococcal Vaccination: 08/13/13 <REJI FREITAS - Last Filed: 05/07/18 13:06> Review of Systems - Review of Systems Constitutional: denies: Chills, Fever EENT: No symptoms reported Cardiovascular: denies: Chest pain Respiratory: No symptoms reported Gastrointestinal: See HPI, Abdominal pain. denies: Diarrhea, Nausea, Vomiting, Constipation Genitourinary: No symptoms reported Female Genitourinary: No symptoms reported Musculoskeletal: No symptoms reported Skin: No symptoms reported Hematologic/Lymphatic: No symptoms reported Neurological/Psychological: No symptoms reported -: Yes All other systems reviewed and negative <REJI FREITAS - Last Filed: 05/07/18 13:06> Physical Exam <REJI FREITAS - Last Filed: 05/07/18 13:06> <LUCAS KIM - Last Filed: 05/08/18 06:25> - Vital signs Vitals: Temp Pulse Resp BP Pulse Ox 97.9 F 69 14 127/54 H 97 05/07/18 08:08 05/07/18 08:08 05/07/18 08:08 05/07/18 08:08 05/07/18 08:08 - Notes Notes: Physical Exam: General: Alert, appears well. HEENT: Normocephalic. Atraumatic. PERRL. Extraocular movements intact. Oropharynx clear. Neck: Supple. Non-tender. Respiratory: No respiratory distress. Clear and equal breath sounds bilaterally. Cardiovascular: Regular rate and rhythm. Abdominal: Normal Inspection. Non-tender. No distension. Normal Bowel Sounds. Back: Non-tender. No deformity or step off. Extremities: Moves all four extremities. Upper extremities: Normal inspection. Normal ROM. Lower extremities: Normal inspection. No edema. Normal ROM. Neurological: Normal cognition. AAOx4. Normal speech. Psychological: Normal affect. Normal Mood. Skin: Warm. Dry. Normal color. (REJI FREITAS) Course - Laboratory Result Diagrams: 05/07/18 09:21 05/07/18 09:21 <REJI FREITAS - Last Filed: 05/07/18 13:06> - Laboratory Result Diagrams: 05/07/18 09:21 05/07/18 09:21 <LUCAS KIM - Last Filed: 05/08/18 06:25> - Re-evaluation Re-evalutation: 05/07/18 12:19 Workup reveals no acute findings. Discussed with patient, and need for follow- up with her primary care physician within the next 3-5 days or any develop worsening symptoms. Will provide Bentyl at this time and primary care follow- up as discussed (LUCAS KIM) - Vital Signs Vital signs: Temp Pulse Resp BP Pulse Ox 98.0 F 68 14 153/75 H 100 05/07/18 12:50 05/07/18 12:50 05/07/18 08:08 05/07/18 12:50 05/07/18 12:50 - Laboratory Laboratory results interpreted by me: 05/07/18 05/07/18 09:21 09:21 WBC 3.5 L Hgb 10.6 L Hct 32.6 L MCH 26.4 L RDW 17.7 H Seg Neutrophils % 41.1 L Monocytes % 14.2 H Absolute Neutrophils 1.4 L Sodium 145.8 H Chloride 108 H Total Protein 8.5 H Lipase 351.1 H Discharge <REJI FREITAS - Last Filed: 05/07/18 13:06> <LUCAS KIM - Last Filed: 05/08/18 06:25> - Discharge Clinical Impression: Abdominal pain Qualifiers: Abdominal location: right lower quadrant Qualified Code(s): R10.31 - Right lower quadrant pain Disposition: HOME, SELF-CARE Instructions: Abdominal Pain ([facility]) Prescriptions: Dicyclomine HCl [Bentyl 20 mg Tablet] 20 mg PO QID PRN #30 tablet PRN Reason: Referrals: TRISTON TYLER MD [Primary Care Provider] - Follow up in 3-5 days Scribe Attestation: 05/08/18 06:25 I personally performed the services described documentation, reviewed and edited the documentation which was dictated to describe my presence, and it accurately records my words and actions. (LUCAS KIM) Scribe Documentation - Scribe Written by Venturae:: Genny Bueno, 05/07/2018 1040 acting as scribe for :: Bear <REJI FREITAS - Last Filed: 05/07/18 13:06>
[2018-05-07] MEDS ORDERED: RINGERS SOLUTION,LACTATED 500 ML IV ONE (10:20)
[2018-05-07 11:44] LABS: APPEARANCE,URINE CLEAR; BILIRUBIN,URINE NEGATIVE (NEGATIVE); COLOR,URINE YELLOW; GLUCOSE, URINE NEGATIVE (NEGATIVE); KETONES,URINE NEGATIVE (NEGATIVE); LEUKOCYTE ESTERASE,URINE NEGATIVE (NEGATIVE); NITRITE,URINE NEGATIVE (NEGATIVE); PROTEIN,URINE NEGATIVE (NEGATIVE); URINE SPECIFIC GRAVITY 1.014; UROBILINOGEN,URINE NEGATIVE mg/dL (<2.0)
--- NOTE | 2018-05-07 11:44 | RADIOLOGY REPORT (SQ) ---
EXAM DESCRIPTION: CT ABD/PELVIS WITH IV ONLY COMPLETED DATE/TIME: 05/07/2018 11:07 am REASON FOR STUDY: RLQ pain COMPARISON: None. TECHNIQUE: CT scan of the abdomen and pelvis performed using helical scanning technique with dynamic intravenous contrast injection. No oral contrast. Images reviewed with lung, soft tissue, and bone windows. Reconstructed coronal and sagittal MPR images reviewed. Delayed images for evaluation of the urinary system also acquired. All images stored on PACS. All CT scanners at this facility use dose modulation, iterative reconstruction, and/or weight based d osing when appropriate to reduce radiation dose to as low as reasonably achievable (ALARA). [facility]: Dose Right [facility]: CareDose [facility]: Dose Right [facility]: Teradose 4D [facility]: Teabox CONTRAST TYPE AND DOSE: contrast/concentration: Isovue 370.00 mg/ml; Total Contrast Delivered: 59.0 ml; Total Saline Delivered: 65.0 ml RENAL FUNCTION: Creatinine 0.7 RADIATION DOSE: CT Rad equipment meets quality standard of care and radiation dose reduction techniq ues were employed. CTDIvol: 5.4 - 7.3 mGy. DLP: 646 mGy-cm.. LIMITATIONS: No oral contrast FINDINGS: LOWER CHEST: Large retrocardiac hiatal hernia containing the stomach fundus LIVER: Normal size. No masses. No dilated ducts. SPLEEN: Normal size. No focal lesions. PANCREAS: No masses. No significant calcifications. No adjacent inflammation or peripancreatic fluid collections. Pancreatic duct not dilated. GALLBLADDER: Surgically absent ADRENAL GLANDS: No significant masses or asymmetry. RIGHT KIDNEY AND URETER: No solid masses. No significant calcifications. No hydronephrosis or hyd roureter. LEFT KIDNEY AND URETER: No solid masses. Left upper pole 5 mm intrarenal nonobstructive stone. Lef t lower pole 4 mm intrarenal nonobstructive stone. No left ureteral calcifications No hydronephros is or hydroureter. AORTA AND VESSELS: No aneurysm. No dissection. 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 . RETROPERITONEUM: No retroperitoneal adenopathy, hemorrhage or masses. BOWEL AND PERITONEAL CAVITY: No CT evidence of bowel obstruction or free intraperitoneal air or fluid . No significant colonic diverticulosis. APPENDIX: Not definitely identified. No right lower quadrant inflammatory change. PELVIS: Post hysterectomy. No free fluid. No masses or adenopathy. Bladder, rectum unremarkable. ABDOMINAL WALL: No masses. No hernias. BONES: Degenerative disc changes lower lumbar spine OTHER: No other significant finding. IMPRESSION: No acute findings. TECHNICAL DOCUMENTATION: JOB ID: [id number] Quality ID # [id number]: Final reports with documentation of one or more dose reduction techniques (e.g., Au tomated exposure control, adjustment of the mA and/or kV according to patient size, use of iterative reconstruction technique) 2010 [employer]- All Rights Reserved Reading location - IP/workstation name: [id number]
[2018-05-07 13:29] VITALS: BP 153/75
== END 2018-05-07 13:29 | disposition home or self-care (01) ==
LOC: ER 07:59
DX: R10.31 Right lower quadrant pain (principal)
CPT/HCPCS: 99284; 96360; 36415; 83690; 85025; 80053; 81001; 74177; J7120

== ENCOUNTER 2018-11-13 07:23 | Outpatient (CLI) | payer MEDICARE, OTHER ==
[2018-11-13] MEDS ORDERED: ACETAMINOPHEN 325 MG TABLET PO PRN (08:28)
[2018-11-13] MEDS ORDERED: DIPHENHYDRAMINE HCL 50 MG in NORMAL SALINE 50 ML IV PRN (08:29)
[2018-11-13] MEDS ORDERED: DEXTROSE 5%-WATER 250 ML IV PRN (08:29)
[2018-11-13] MEDS ORDERED: CONTAINER EMPTY IV PRN (08:35)
[2018-11-13] MEDS ORDERED: IMMUN GLOB IV PRN (08:35)
[2018-11-13] MEDS ORDERED: IGA OV50 IV PRN (08:35)
[2018-11-13] MEDS ORDERED: GLY IV PRN (08:35)
[2018-11-13 10:31] VITALS: BP 118/51
[2018-11-13 12:19] LABS: IRON(TIBC) 77.4 ug/dL (37-170)
== END 2018-11-13 14:25 | disposition home or self-care (01) ==
LOC: II 07:23 → 5TH 07:27 → II 14:25
PROVIDERS: ATTEND Internal Medicine
PROC: 30233S1 Transfusion of Nonautologous Globulin into Peripheral Vein, Percutaneous Approach (ICD-10-PCS; principal; 2018-11-13)
PROC: 3E033GC Introduction of Other Therapeutic Substance into Peripheral Vein, Percutaneous Approach (ICD-10-PCS; 2018-11-13)
DX: G61.81 Chronic inflammatory demyelinating polyneuritis (principal); D50.8 Other iron deficiency anemias
CPT/HCPCS: 36415; 82728; 83540; 83550; 96365; 96366; 96367; A9270 ×2; J1200; J1569; 96374; J3490

== ENCOUNTER 2018-12-11 08:52 | Outpatient (CLI) | payer MEDICARE, OTHER ==
[~2018-12-11 08:52] MED LIST: ACETAMINOPHEN 325 MG TABLET PO PRN; CONTAINER EMPTY IV PRN; DEXTROSE 5%-WATER 250 ML IV PRN; DIPHENHYDRAMINE HCL 50 MG in NORMAL SALINE 50 ML IV PRN; GLY IV PRN; IGA OV50 IV PRN; IMMUN GLOB IV PRN
[2018-12-11 09:30] VITALS: BP 138/48
== END 2018-12-11 12:45 | disposition home or self-care (01) ==
LOC: II 08:52 → 5TH 08:52 → II 12:45
PROVIDERS: ATTEND Internal Medicine
PROC: 30233S1 Transfusion of Nonautologous Globulin into Peripheral Vein, Percutaneous Approach (ICD-10-PCS; principal; 2018-12-11)
PROC: 3E033GC Introduction of Other Therapeutic Substance into Peripheral Vein, Percutaneous Approach (ICD-10-PCS; 2018-12-11)
DX: G61.81 Chronic inflammatory demyelinating polyneuritis (principal)
CPT/HCPCS: 96367; A9270 ×2; J1200; J1569; 96365; 96366; J3490

== ENCOUNTER 2019-02-17 07:51 | Outpatient (CLI) | payer MEDICARE, OTHER ==
[~2019-02-17 07:51] MED LIST changes: -GLY IV PRN; -IGA OV50 IV PRN; -IMMUN GLOB IV PRN; +IMMUNE GLOB GAM CAPRYLATE IV PRN
[2019-02-17 08:54] VITALS: BP 110/45
== END 2019-02-17 13:33 | disposition home or self-care (01) ==
LOC: II 07:51 → 5TH 07:58 → II 13:33
PROVIDERS: ATTEND Internal Medicine
PROC: 30233S1 Transfusion of Nonautologous Globulin into Peripheral Vein, Percutaneous Approach (ICD-10-PCS; principal; 2019-02-17)
PROC: 3E033GC Introduction of Other Therapeutic Substance into Peripheral Vein, Percutaneous Approach (ICD-10-PCS; 2019-02-17)
DX: G61.81 Chronic inflammatory demyelinating polyneuritis (principal)
CPT/HCPCS: 96365; 96366; 96360; A9270 ×2; J1200; J1561; 96367; J3490

== ENCOUNTER → 2019-10-30 | Outpatient (CLI) | payer MEDICARE, OTHER ==
--- NOTE | 2019-10-30 11:46 | RADIOLOGY REPORT (SQ) ---
EXAM DESCRIPTION: BARIUM SWALLOW ESOPHAGUS COMPLETED DATE/TIME: 10/30/2019 10:36 am REASON FOR STUDY: DYSPHAGIA (R13.10) R13.10 DYSPHAGIA, UNSPECIFIED COMPARISON: None. TECHNIQUE: Under fluoroscopic guidance, patient ingested effervescent granules followed by thick and thin barium. Fluoroscopic spot images and routine radiographic images acquired and stored on PACS. 12 MM BARIUM TABLET GIVEN: No LIMITATIONS: None. FLUOROSCOPY TIME: FLUORO TIME: 2.44 minutes 19 images saved to PACS. FINDINGS: NEUROMUSCULAR COORDINATION OF SWALLOW: Normal. No aspiration. ESOPHAGEAL MOTILITY: Stasis of barium seen throughout the esophagus due to distal narrowing. ESOPHAGEAL MUCOSA: Normal mucosa without masses or ulceration. GASTRO-ESOPHAGEAL JUNCTION: Moderate paraesophageal hernia with narrowing of the GE junction which li mits passage of contrast into the stomach. NON-GI TRACT STRUCTURES: No significant finding. OTHER: Duodenal diverticulum. IMPRESSION: Moderate-sized paraesophageal hiatal hernia with narrowing of the GE junction, which givens its passage of contrast into the stomach. RECOMMENDATION: None COMMENT: None Quality ID [id number]: Final reports for procedures using fluoroscopy that document radiation exposure olivier ester, or exposure time and number of fluorographic images (if radiation exposure indices are not avail able) TECHNICAL DOCUMENTATION: JOB ID: [id number] [employer]- All Rights Reserved Reading location - IP/workstation name: [email or web address] [id number]
== END ==
LOC: RAD 09:42
PROVIDERS: ATTEND Internal Medicine Gastroenterology
DX: K44.9 Diaphragmatic hernia without obstruction or gangrene (principal); K21.9 Gastro-esophageal reflux disease without esophagitis; R13.10 Dysphagia, unspecified
CPT/HCPCS: 74220

== ENCOUNTER 2020-05-19 16:41 | Emergency (ER) | payer MEDICARE, OTHER ==
[2020-05-19 17:48] LABS: HEMATOCRIT 38.6 % (36.0-47.0); HEMOGLOBIN 13.2 g/dL (12.0-15.5); MEAN CORPUSCULAR HEMOGLOBIN 31.4 pg (27.0-33.4); MEAN CORPUSCULAR HGB CONC 34.2 g/dL (32.0-36.0); MEAN CORPUSCULAR VOLUME 92 fl (80-97); RED CELL DISTRIBUTION WIDTH 13.9 % (11.5-14.0); WHITE BLOOD COUNT 5.1 10^3/uL (4.0-10.5)
[2020-05-19 18:07] LABS: ALBUMIN 3.9 g/dL (3.5-5.0); ALKALINE PHOSPHATASE 69 U/L (38-126); ANION GAP 7 (5-19); ASPARTATE AMINO TRANSFERASE 35 U/L (14-36); BILIRUBIN,DIRECT 0.1 mg/dL (0.0-0.4); BILIRUBIN,TOTAL 1.1 mg/dL (0.2-1.3); BLOOD UREA NITROGEN 17 mg/dL (7-20); CALCIUM 9.2 mg/dL (8.4-10.2); CARBON DIOXIDE 26 mmol/L (22-30); CHLORIDE 100 mmol/L (98-107); GLUCOSE 108 mg/dL (75-110); POTASSIUM 4.1 mmol/L (3.6-5.0); TOTAL PROTEIN 8.4 g/dL (6.3-8.2)
--- NOTE | 2020-05-19 18:20 | EKG REPORT ---
SEVERITY:- ABNORMAL ECG - SINUS RHYTHM CONSIDER LEFT VENTRICULAR HYPERTROPHY INFERIOR INFARCT,OLD LATERAL LEADS ARE ALSO INVOLVED ANTERIOR ST ELEVATION, PROBABLY DUE TO LVH : Confirmed by: Naun Mccallum MD 19-May-2020 18:19:56
[2020-05-19 18:35] LABS: ABSOLUTE LYMPHOCYTES# (MANUAL) 2.4 10^3/uL (0.5-4.7); ABSOLUTE MONOCYTES # (MANUAL) 0.5 10^3/uL (0.1-1.4); BAND NEUTROPHILS % (MANUAL) 1 % (3-5); BASOPHILS % (MANUAL) 0 % (0-2); EOSINOPHILS % (MANUAL) 0 % (0-6); LYMPHOCYTES % (MANUAL) 37 % (13-45); MONOCYTES % (MANUAL) 9 % (3-13); SEGMENTED NEUTROPHILS % (MAN) 42 % (42-78); TOTAL CELLS COUNTED 100
[2020-05-19 18:37] LABS: POLYCHROMASIA SLIGHT
[2020-05-19 18:38] LABS: PLATELET CLUMPS PRESENT; PLATELET COMMENT ADEQUATE; PLATELET LARGE PRESENT
[2020-05-19 18:39] LABS: PLATELET COUNT 235 10^3/uL (150-450)
--- NOTE | 2020-05-19 18:39 | ER Document Report ---
ED General - General Chief Complaint: Epigastric Pain Stated Complaint: SHORTNESS OF BREATH Time Seen by Provider: 05/19/20 18:20 Primary Care Provider: EMORY SANTIAGO MD [Primary Care Provider] - Follow up as needed Mode of Arrival: Ambulatory Information source: Patient Notes: my notes 84-year-old female arrives with chief complaint of having abdominal pain for 2 days. Patient reports she has a history of hiatal hernia. Her gallbladder is been resected many years ago. She denies any nausea vomiting diarrhea constipation. Patient has a history of [place] and receives treatment for this for the last 4 years. Patient's blood pressure is 97/64 but she reports this is a typical blood pressure for her. TRAVEL OUTSIDE OF THE [place] IN LAST 30 DAYS: No - Related Data Allergies/Adverse Reactions: amoxicillin [Amoxicillin] Allergy (Severe, Verified 12/18/17 15:24) rash cephalexin monohydrate [From Keflex] Allergy (Severe, Verified 12/18/17 15:24) rash sulfamethoxazole [From Bactrim] Allergy (Severe, Verified 12/18/17 15:24) rash trimethoprim [From Bactrim] Allergy (Severe, Verified 12/18/17 15:24) rash eggs Allergy (Intermediate, Uncoded 12/18/17 15:24) N&V Past Medical History - Social History Smoking Status: Unknown if Ever Smoked Family History: Reviewed & Not Pertinent, Other - Not reviewed at this time. Patient has homicidal ideation: No - Past Medical History Cardiac Medical History: Reports: Hx Congestive Heart Failure, Hx Hypercholesterolemia - meds x 2 years Denies: Hx Atrial Fibrillation, Hx Coronary Artery Disease, Hx Heart Attack, Hx Hypertension, Hx Peripheral Vascular Disease, Hx Pulmonary Embolism, Hx Heart Murmur Pulmonary Medical History: Reports: Hx Pneumonia - "years ago" 1959's, hospitalized x 1 day Denies: Hx Asthma, Hx Bronchitis, Hx COPD, Hx Respiratory Failure, Hx Sleep Apnea, Hx Tuberculosis Neurological Medical History: Denies: Hx Cerebrovascular Accident, Hx Seizures Renal/ Medical History: Reports: Hx Kidney Stones - "passed", no surgery required. Denies: Hx End Stage Renal Disease, Hx Peritoneal Dialysis Malignancy Medical History: Denies: Hx Leukemia, Hx Lung Cancer GI Medical History: Reports: Hx Gastritis, Hx Gastroesophageal Reflux Disease, Hx Hiatal Hernia - per chest CT 02/01/11. Denies: Hx Crohn's Disease, Hx Irritable Bowel, Hx Liver Failure, Hx Pancreatitis, Hx Ulcer Musculoskeletal Medical History: Reports Hx Arthritis, Denies Hx Fibromyalgia, Denies Hx Muscular Dystrophy Traumatic Medical History: Denies: Hx Fractures Infectious Medical History: Denies: Hx HIV Past Surgical History: Reports: Hx Abdominal Surgery - hernia repair, Hx Cholecystectomy - laparoscopic, Hx Hysterectomy, Hx Orthopedic Surgery - knee replacement pauly. Denies: Hx Appendectomy, Hx Bowel Surgery, Hx Section, Hx Colostomy, Hx Coronary Artery Bypass Graft, Hx Gastric Bypass Surgery, Hx Herniorrhaphy, Hx Mastectomy, Hx Pacemaker, Hx Tonsillectomy, Hx Tubal Ligation - Immunizations Immunizations up to date: Yes Hx Diphtheria, Pertussis, Tetanus Vaccination: Yes Hx Pneumococcal Vaccination: 08/13/13 Physical Exam - Vital signs Vitals: Resp Pulse Ox 25 H 96 05/19/20 17:11 05/19/20 17:11 Course - Vital Signs Vital signs: Temp Pulse Resp BP Pulse Ox 99.8 F 22 H 108/90 H 94 05/19/20 22:00 05/19/20 22:01 05/19/20 22:01 05/19/20 22:01 - Laboratory Result Diagrams: 05/19/20 17:17 05/19/20 17:17 Laboratory results interpreted by me: 05/19/20 05/19/20 17:17 17:17 Band Neutrophils % 1 L Sodium 133.0 L Total Protein 8.4 H - Diagnostic Test Radiology reviewed: Reports reviewed Critical Care Note - Critical Care Note Total time excluding time spent on procedures (mins): 90 Comments: I advised patient of negative findings on labs and CT Discharge - Discharge Clinical Impression: Abdominal pain Qualifiers: Abdominal location: unspecified location Qualified Code(s): R10.9 - Unspecified abdominal pain Condition: Good Disposition: HOME, SELF-CARE Instructions: Abdominal Pain ([facility]) Additional Instructions: Follow-up with personal doctor return to ER as needed take medicine as directed encourage fluids Referrals: EMORY SANTIAGO MD [Primary Care Provider] - Follow up as needed
[2020-05-19] MEDS ORDERED: MORPHINE SULFATE 10 MG/ML INJ IV ONE (18:42)
[2020-05-19] MEDS ORDERED: ONDANSETRON HCL INJ/PF 4 MG/2 ML SDV IV ONE (18:43)
--- NOTE | 2020-05-19 23:26 | RADIOLOGY REPORT (SQ) ---
EXAM DESCRIPTION: CT ABDOMEN PELVIS WITH IV CONTRAST COMPLETED DATE/TME: 05/19/2020 00:00 CLINICAL HISTORY: 84 years, Female, abd pain COMPARISON: 05/07/2018 CT TECHNIQUE: 375 Images stored on PACS. All CT scanners at this facility use dose modulation, iterative reconstruction, and/or weight based dosing when appropriate to reduce radiation dose to as low as reasonably achievable (ALARA). [facility]: Dose Right [facility]: CareDose [facility]: Dose Right [facility]: Teradose 4D [facility]: [employer] LIMITATIONS: None. FINDINGS: Limited evaluation of the lung bases shows a moderate sized hiatal hernia. Fibrotic changes in each lung base. Osseous structures are grossly intact. The liver, spleen, adrenal glands, pancreas are unremarkable. Subcentimeter renal cysts bilaterally. Surgical absence of the gallbladder. There is no evidence for bowel obstruction. Normal appendix. Note is made of multiple diverticuli involving the distal small bowel/ileum without evidence for acute diverticulitis. Vascular calcifications are again noted. IMPRESSION: No acute intra-abdominal/pelvic process. TECHNICAL DOCUMENTATION: Quality ID # [id number]: Final reports with documentation of one or more dose reduction techniques (e.g., Automated exposure control, adjustment of the mA and/or kV according to patient size, use of iterative reconstruction technique) copyright 2010 [employer]- All Rights Reserved
[2020-05-20] MEDS ORDERED: SUCRALFATE 1 GM TABLET PO ONE (00:03)
[2020-05-20 00:55] VITALS: BP 128/72
[2020-05-20 13:56] LABS: PATH REVIEW PATHOLOGIST REVIEWED
== END 2020-05-20 00:55 | disposition home or self-care (01) ==
LOC: ER 16:41
DX: R10.9 Unspecified abdominal pain (principal); R10.13 Epigastric pain; R06.02 Shortness of breath; G61.0 Guillain-Barre syndrome; Z88.0 Allergy status to penicillin; Z88.2 Allergy status to sulfonamides; Z88.8 Allergy status to other drugs, medicaments and biological substances; I50.9 Heart failure, unspecified; E78.00 Pure hypercholesterolemia, unspecified; Z79.899 Other long term (current) drug therapy
CPT/HCPCS: 93005; 99291; 99292; 96374; 96375; 36415; 85025; 80053; 84484; 74177; 93010; J2270; A9270; J2405

== ENCOUNTER 2020-11-09 18:28 | Inpatient (IN) | payer MEDICARE, OTHER ==
--- NOTE | 2020-11-09 18:57 | ER Document Report ---
ED General - General Chief Complaint: Vomiting Stated Complaint: VOMITING Time Seen by Provider: 11/09/20 18:56 TRAVEL OUTSIDE OF THE [place] IN LAST 30 DAYS: No - HPI Notes: 84-year-old female presents with vomiting. Patient was diagnosed with Covid during the weekend of . She has since been "cleared" by the health department. Patient has had daily vomiting since the onset of her Covid inf ection. Vomiting occurs a daily, patient has had markedly reduced p.o. intake, as she will try to eat something and then immediately vomits. Is been going on daily for the past month. Daughter at bedside states that "Covid kicked her butt". Patient states that she does not really have any taste still. She is known to have a large hiatal hernia. She is on daily Prilosec. New symptom today is that there appeared to be some blood clots after patient vomited after a boost. Patient is on aspirin, takes this every other day. Additionally new symptom is that patient is now requiring oxygen requirement. Patient's granddaughter is respiratory therapist, her saturations were found to be pers istently 82% at home, so the family has initiated nasal cannula treatment, patient has been on 2 L nasal cannula for several weeks. Yesterday the primary care doctor prescribed benzoate for cough, patient does not think this is really helping much. Patient states she is otherwise very healthy. She has a history of COPD which was from a pneumonia vaccine, she receives monthly IgG infusions. She also has had a minor heart attack at some point over the last several years, as she had a scan done last year which showed a small scar. Patient currently denies chest pain or shortness of breath. She denies abdominal pain. - Related Data Allergies/Adverse Reactions: amoxicillin [Amoxicillin] Allergy (Severe, Verified 11/09/20 18:39) rash cephalexin monohydrate [From Keflex] Allergy (Severe, Verified 11/09/20 18:39) rash sulfamethoxazole [From Bactrim] Allergy (Severe, Verified 11/09/20 18:39) rash trimethoprim [From Bactrim] Allergy (Severe, Verified 11/09/20 18:39) rash eggs Allergy (Intermediate, Uncoded 11/09/20 18:39) N&V Past Medical History - General Information source: Patient, Relative - Social History Smoking Status: Never Smoker Chew tobacco use (# tins/day): No Frequency of alcohol use: None Drug Abuse: None Family History: Reviewed & Not Pertinent, Other - Not reviewed at this time. Patient has homicidal ideation: No - Past Medical History Cardiac Medical History: Reports: Hx Congestive Heart Failure, Hx Hypercholesterolemia - meds x 2 years Denies: Hx Atrial Fibrillation, Hx Coronary Artery Disease, Hx Heart Attack, Hx Hypertension, Hx Peripheral Vascular Disease, Hx Pulmonary Embolism, Hx Heart Murmur Pulmonary Medical History: Reports: Hx Pneumonia - "years ago" s, hospitalized x 1 day Denies: Hx Asthma, Hx Bronchitis, Hx COPD, Hx Respiratory Failure, Hx Sleep Apnea, Hx Tuberculosis Neurological Medical History: Denies: Hx Cerebrovascular Accident, Hx Seizures Renal/ Medical History: Reports: Hx Kidney Stones - "passed", no surgery required. Denies: Hx End Stage Renal Disease, Hx Peritoneal Dialysis Malignancy Medical History: Denies: Hx Leukemia, Hx Lung Cancer GI Medical History: Reports: Hx Gastritis, Hx Gastroesophageal Reflux Disease, Hx Hiatal Hernia - per chest CT 02/01/11. Denies: Hx Crohn's Disease, Hx Irritable Bowel, Hx Liver Failure, Hx Pancreatitis, Hx Ulcer Musculoskeletal Medical History: Reports Hx Arthritis, Denies Hx Fibromyalgia, Denies Hx Muscular Dystrophy Traumatic Medical History: Denies: Hx Fractures Infectious Medical History: Denies: Hx HIV Past Surgical History: Reports: Hx Abdominal Surgery - hernia repair, Hx Cholecystectomy - laparoscopic, Hx Hysterectomy, Hx Orthopedic Surgery - knee replacement pauly. Denies: Hx Appendectomy, Hx Bowel Surgery, Hx Section, Hx Colostomy, Hx Coronary Artery Bypass Graft, Hx Gastric Bypass Surgery, Hx Herniorrhaphy, Hx Mastectomy, Hx Pacemaker, Hx Tonsillectomy, Hx Tubal Ligation - Immunizations Immunizations up to date: Yes Hx Diphtheria, Pertussis, Tetanus Vaccination: Yes Hx Pneumococcal Vaccination: 08/13/13 Review of Systems - Review of Systems Constitutional: denies: Fever EENT: No symptoms reported Cardiovascular: denies: Chest pain Respiratory: Short of breath Gastrointestinal: See HPI Genitourinary: No symptoms reported Female Genitourinary: No symptoms reported Musculoskeletal: No symptoms reported Skin: No symptoms reported Hematologic/Lymphatic: No symptoms reported Neurological/Psychological: No symptoms reported Physical Exam - Vital signs Vitals: Resp Pulse Ox 20 86 L 11/09/20 18:37 11/09/20 18:37 - General General appearance: Appears well, Alert - HEENT Head: Normocephalic, Atraumatic Eyes: No: Scleral icterus Extraocular movements intact: Yes Pupils: PERRL - Respiratory Breath sounds: Rhonchi - Bases - Cardiovascular Rhythm: Regular Heart sounds: Normal auscultation Murmur: Yes Normal capillary refill: Yes - Abdominal Distension: No distension Bowel sounds: Normal Tenderness: Nontender - Extremities General lower extremity: No: Edema - Neurological Neuro grossly intact: Yes Cognition: Normal Orientation: AAOx4 - Psychological Associated symptoms: Normal affect - Skin Skin Temperature: Warm Course - Re-evaluation Re-evalutation: 84-year-old female Covid positive about 5 weeks ago here with daily vomiting and overall poor p.o. intake. Additionally is now on an oxygen requirement, which was started by family member who is a respiratory therapist. New symptom today was concern for blood in emesis. On exam patient is alert and interactive, nontoxic-appearing, afebrile and hemodynamically stable. She was 86% on room air on arrival, with application 2 L nasal cannula, she is no longer hypoxic. Her abdomen is soft and without focal area of tenderness. Suspect that she is likely still feeling the effects of a Covid infection given the recurrent vomiting, have a low suspicion for acute intra-abdominal pathology given her overall reassuring abdominal exam. Given her new oxygen requirement, will obtain CTA chest to evaluate for pulmonary embolism. Will also get a good look at the lungs to see if there still affected by Covid. Will treat symptomatically with fluids and Zofran. Laboratory evaluation done prior to arrival essentially remarkable for some hypokalemia, replacement ordered. EKG nonischemic. 11/09/20 19:40 Patient had episode of emesis, which was inspected. It is not javy hematemesi s. There is some streaking/pink tinge, expect this to go with irritation from prolonged vomiting 11/09/20 22:39 CTA chest has resulted. No pulmonary embolism. She does have extensive lung changes from the known Covid infection. Also with large hiatal hernia and esophageal dilation. Patient and daughter updated on these results. Patient states that she does not feel well enough to go home as she is still having nausea and overall feeling poorly. Have ordered a rapid Covid to see if she is still detectable 11/10/20 01:03 Patient is still positive for Covid via her swab. I discussed for admission with Dr. Mackey. Have ordered a dose of Decadron to help symptomatically - Vital Signs Vital signs: Temp Pulse Resp BP Pulse Ox 19 127/93 H 97 11/10/20 00:31 11/10/20 00:31 11/10/20 00:31 - Laboratory Results Result Diagrams: 11/09/20 18:45 11/09/20 18:45 Laboratory Results Interpreted: 11/09/20 11/09/20 11/09/20 18:45 18:45 23:13 RBC 3.71 L Hgb 11.4 L Hct 33.9 L RDW 14.7 H Band Neutrophils % 1 L Potassium 3.2 L Chloride 96 L Carbon Dioxide 37 H Creatinine 0.47 L Glucose 127 H AST 38 H Albumin 2.8 L SARS-CoV-2 Rap RNA(RT-PCR) POSITIVE H Critical Laboratory Results Reviewed: No Critical Results - Radiology Results Critical Radiology Results Reviewed: No Critical Results - EKG Interpretation by Me Additional EKG results interpreted by me: EKG is interpreted by me. Sinus rhythm, rate 83. Slightly widened QRS in inferior/lateral leads, seen on previous EKG. QTc within normal limits. No STEMI. EKG morphology similar to previous EKG May 2020 Discharge - Discharge Clinical Impression: COVID-19 virus infection, Hypokalemia Vomiting Qualifiers: Vomiting type: unspecified Vomiting Intractability: intractable Nausea presence: with nausea Qualified Code(s): R11.2 - Nausea with vomiting, unspecified Disposition: ADMITTED INPATIENT Admitting Provider: Narendra Unit Admitted: Medical Floor
[2020-11-09 19:07] LABS: HEMATOCRIT 33.9 % (36.0-47.0); HEMOGLOBIN 11.4 g/dL (12.0-15.5); MEAN CORPUSCULAR HEMOGLOBIN 30.8 pg (27.0-33.4); MEAN CORPUSCULAR HGB CONC 33.7 g/dL (32.0-36.0); MEAN CORPUSCULAR VOLUME 92 fl (80-97); PLATELET COUNT 263 10^3/uL (150-450); RED BLOOD COUNT 3.71 10^6/uL (3.72-5.28); RED CELL DISTRIBUTION WIDTH 14.7 % (11.5-14.0); WHITE BLOOD COUNT 7.3 10^3/uL (4.0-10.5)
[2020-11-09] MEDS ORDERED: RINGERS SOLUTION,LACTATED 1,000 ML IV ONE (19:07)
[2020-11-09] MEDS ORDERED: ONDANSETRON HCL INJ/PF 4 MG/2 ML SDV IV ONE ×2 (19:07→22:39)
[2020-11-09 19:27] LABS: ALBUMIN 2.8 g/dL (3.5-5.0); ALKALINE PHOSPHATASE 93 U/L (38-126); ANION GAP 5 (5-19); ASPARTATE AMINO TRANSFERASE 38 U/L (14-36); BILIRUBIN,DIRECT 0.4 mg/dL (0.0-0.4); BILIRUBIN,TOTAL 0.7 mg/dL (0.2-1.3); BLOOD UREA NITROGEN 19 mg/dL (7-20); CALCIUM 8.6 mg/dL (8.4-10.2); CARBON DIOXIDE 37 mmol/L (22-30); CHLORIDE 96 mmol/L (98-107); GLUCOSE 127 mg/dL (75-110); POTASSIUM 3.2 mmol/L (3.6-5.0)
[2020-11-09 19:32] LABS: ABSOLUTE LYMPHOCYTES# (MANUAL) 1.3 10^3/uL (0.5-4.7); ABSOLUTE MONOCYTES # (MANUAL) 0.4 10^3/uL (0.1-1.4); BAND NEUTROPHILS % (MANUAL) 1 % (3-5); BASOPHILS % (MANUAL) 0 % (0-2); EOSINOPHILS % (MANUAL) 0 % (0-6); LYMPHOCYTES % (MANUAL) 18 % (13-45); MONOCYTES % (MANUAL) 6 % (3-13); SEGMENTED NEUTROPHILS % (MAN) 75 % (42-78); TOTAL CELLS COUNTED 100
[2020-11-09 19:33] LABS: ANISOCYTOSIS SLIGHT
[2020-11-09 19:34] LABS: PLATELET COMMENT ADEQUATE; TOXIC VACUOLATION PRESENT
[2020-11-09] MEDS: POTASSI CL 20 MEQ/50 ML RIDER 20 MEQ/50 ML RTUPB IV SCH ×2 (20:45→23:15)
--- NOTE | 2020-11-09 21:22 | RADIOLOGY REPORT (SQ) ---
CT ANGIOGRAM CHEST WITH IV CONTRAST: 11/09/2020 8:16 PM [employer] HISTORY: 84-year old patient with COVID infection. TECHNIQUE: Postcontrast CT through the chest was performed per protocol for CT angiography. 3D Multiplanar reformations were performed at the workstation. Reconstructed sagittal and coronal images were also obtained through the chest. This exam was performed according to our departmental dose-optimization program, which includes automated exposure control, adjustment of the mA and/or KV according to the patient's size and/or use of iterative reconstruction technique. COMPARISON: None available FINDINGS: The heart size is normal in size. No pericardial effusion is seen. No significant mediastinal, supraclavicular, or axillary lymphadenopathy is seen. The thoracic aorta is within normal limits of size. The distal segmental arteries are not well opacified with contrast. The main pulmonary artery is at the upper limits of normal in size. The thyroid gland is unremarkable. The visualized esophagus is patulous with an air-fluid level noted. There is also some esophageal wall thickening present at the mid to distal portions of the esophagus. A large hiatal hernia seen. The central tracheobronchial tree is patent. There are bilateral peripheral groundglass airspace opacities present concerning for infection. No discrete pleural effusion is seen. There is no evidence of a pneumothorax. The bones demonstrate no suspicious lytic or blastic lesion. Multilevel degenerative changes are seen within the thoracic spine. The gallbladder is surgically absent. IMPRESSION: There are bilateral peripheral groundglass airspace opacities concerning atypical viral infection. No filling defect is seen to suggest a pulmonary artery embolism.
[2020-11-10] MEDS ORDERED: DEXAMETHASONE SOD PHOSPHATE INJ 4 MG/1 ML VIAL IV ONE (00:34)
[2020-11-10] MEDS ORDERED: ONDANSETRON HCL INJ/PF 4 MG/2 ML SDV ONE (01:00)
[2020-11-10] MEDS ORDERED: ONDANSETRON HCL INJ/PF 4 MG/2 ML SDV IV PRN (01:41)
[2020-11-10] MEDS ORDERED: ACETAMINOPHEN 325 MG TABLET PO PRN (01:41)
--- NOTE | 2020-11-10 01:55 | PDOC H&P ---
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 She reports that the vomiting was initially of ingested matter but on the day of presentation she noticed stre aks of bright red blood in her vomitus and presented to the ED for further evaluation. Patient was managed for COVID-19 at home by her granddaughter who is a nurse. She has been on 2 L intranasal oxygen at home for the past month and she states that she was cleared for COVID-19 from local health department. She denies any fever, chest pain, shortness of breath, palpitation, dizziness, diarrhea or any change in her urinary habits. Past Medical History Cardiac Medical History: Reports: Congestive Heart Failure, Hyperlipidema - meds x 2 years Denies: Atrial Fibrillation, Coronary Artery Disease, Myocardial Infarction, Hypertension, Peripheral Vascular Disease, Pulmonary Embolism, Heart Murmur Pulmonary Medical History: Reports: Pneumonia - "years ago" 1959's, hospitalized x 1 day Denies: Asthma, Bronchitis, Chronic Obstructive Pulmonary Disease (COPD), Respiratory Failure, Sleep Apnea, Tuberculosis Neurological Medical History: Denies: Seizures Renal/ Medical History: Denies: End Stage Renal Disease Malignancy Medical History: Denies: Leukemia, Lung Cancer GI Medical History: Reports: Gastroesophageal Reflux Disease, Hiatal Hernia - per chest CT 02/01/11 Denies: Crohn's Disease Musculoskeltal Medical History: Reports: Arthritis Denies: Fibromyalgia Hematology: Reports: Anemia - 1984, PRBC's x 1 unit, post-op Denies: Hemophilia, Sickle Cell Disease Infectious Medical History: Denies: HIV Past Surgical History Past Surgical History: Reports: Cholecystectomy - laparoscopic, Hysterectomy, Orthopedic Surgery - knee replacement pauly Denies: Amputation, Appendectomy, Section, Colostomy, Coronary Artery Bypass Graft, Gastric Bypass Surgery, Herniorrhaphy, Mastectomy, Pacemak er, Tonsillectomy, Tubal Ligation Social History Information Source: Patient Lives with: Family Smoking Status: Never Smoker Electronic Cigarette use?: No Hx Recreational Drug Use: No Hx Prescription Drug Abuse: No - Advance Directive Resuscitation Status: Full Code Family History Family History: Reviewed & Not Pertinent, Other - Not reviewed at this time. Parental Family History Reviewed: Yes Children Family History Reviewed: Yes Sibling(s) Family History Reviewed.: Yes Medication/Allergy Home Medications: Multivitamin [Multivitamins] 1 each PO DAILY 06/17/12 Calcium Carbonate/Vitamin D3 [Calcium 500 + Vit D 200 Caplet] 1 tab-cap PO QPM 08/04/13 Levothyroxine Sodium [Synthroid 0.075 mg Tablet] 0.075 mg PO DAILY 10/12/16 Ranitidine HCl [Zantac 75 mg Tablet] 1 tab PO PDIA 10/12/16 Furosemide [Lasix] 20 mg PO DAILY #3 tablet 03/09/17 Dicyclomine HCl [Bentyl 20 mg Tablet] 20 mg PO QID PRN #30 tablet 05/07/18 Allergies/Adverse Reactions: amoxicillin [Amoxicillin] Allergy (Severe, Verified 11/09/20 18:39) rash cephalexin monohydrate [From Keflex] Allergy (Severe, Verified 11/09/20 18:39) rash sulfamethoxazole [From Bactrim] Allergy (Severe, Verified 11/09/20 18:39) rash trimethoprim [From Bactrim] Allergy (Severe, Verified 11/09/20 18:39) rash eggs Allergy (Intermediate, Uncoded 11/09/20 18:39) N&V Review of Systems Constitutional: ABSENT: chills, fever(s), headache(s), weight gain, weight loss Eyes: ABSENT: visual disturbances Ears: ABSENT: hearing changes Cardiovascular: ABSENT: chest pain, dyspnea on exertion, edema, orthropnea, palpitations Respiratory: ABSENT: cough, hemoptysis Gastrointestinal: PRESENT: as per HPI Genitourinary: ABSENT: dysuria, hematuria Musculoskeletal: ABSENT: joint swelling Integumentary: ABSENT: rash, wounds Neurological: ABSENT: abnormal speech, confusion, dizziness, focal weakness, syncope Psychiatric: ABSENT: anxiety, depression, homidical ideation, suicidal ideation Endocrine: ABSENT: cold intolerance, heat intolerance, polydipsia, polyuria Physical Exam Vital Signs: Temp Pulse Resp BP Pulse Ox 19 127/93 H 97 11/10/20 00:31 11/10/20 00:31 11/10/20 00:31 Intake & Output 11/08/20 11/09/20 11/10/20 06:59 06:59 06:59 Intake Total 50 Balance 50 Additional comments: GENERAL APPEARANCE: Alert and oriented x3, in no acute distress, currently on 2 L intranasal oxygen HEENT: Normocephalic and atraumatic. No scleral icterus. Moist oral mucosa NECK: Supple. No lymphadenopathy or tenderness. No carotid bruit. No JVD CHEST: Symmetric. Nontender to palpation. LUNGS: Clear with good air entry bilaterally. No wheezing or crackles HEART: Regular rate and rhythm with normal S1 and S2. No murmurs, gallops, or rubs. ABDOMEN: soft, active bowel sounds, no direct or rebound tenderness. No organomegaly detected. EXTREMITIES: No cyanosis, clubbing, or edema. MUSCULOSKELETAL: No deformity, atrophy or swelling noted PSYCHIATRIC: Appropriate mood and affect. SKIN: Warm, dry, and well perfused. No lesions or rashes are noted. NEUROLOGIC: No focal sensory or motor deficits are noted. Results Laboratory Results: 11/09/20 18:45 11/09/20 18:45 11/09/20 11/09/20 11/09/20 18:45 18:45 18:45 WBC 7.3 RBC 3.71 L Hgb 11.4 L Hct 33.9 L MCV 92 MCH 30.8 MCHC 33.7 RDW 14.7 H Plt Count 263 Seg Neutrophils % Not Reportable Sodium 138.0 Potassium 3.2 L Chloride 96 L Carbon Dioxide 37 H Anion Gap 5 BUN 19 Creatinine 0.47 L Est GFR ( Amer) > 60 Glucose 127 H Calcium 8.6 Total Bilirubin 0.7 AST 38 H Alkaline Phosphatase 93 Total Protein 7.0 Albumin 2.8 L Lipase 168.7 Blood Type Antibody Screen 11/09/20 19:56 WBC RBC Hgb Hct MCV MCH MCHC RDW Plt Count Seg Neutrophils % Sodium Potassium Chloride Carbon Dioxide Anion Gap BUN Creatinine Est GFR ( Amer) Glucose Calcium Total Bilirubin AST Alkaline Phosphatase Total Protein Albumin Lipase Blood Type A POSITIVE Antibody Screen NEGATIVE Impressions: Chest/Abdomen CTA 11/09/20 19:08 IMPRESSION: There are bilateral peripheral groundglass airspace opacities concerning atypical viral infection. No filling defect is seen to suggest a pulmonary artery embolism. Assessment and Plan - Diagnosis (1) Nausea and vomiting Is this a current diagnosis for this admission?: Yes Plan: Patient presents with intractable nausea and vomiting She reports blood-streaked vomiting after prolonged period Of vomiting of ingested matter Might have a component of difficulty of swallowing as patient reports that she had a history of borderline dilation of the esophagus twice in the past Kept her n.p.o. Consider swallow eval Zofran/promethazine as needed for nausea vomiting (2) Upper GI bleed Is this a current diagnosis for this admission?: Yes Plan: Patient reports an episode of hematemesis after repeated vomiting of ingested matter Likely due to Teetee-Alvarado tear H&H on this presentation was 11.4/33.9 Continue trending CBC Kept n.p.o. Placed her on IV PPI Continue monitoring vital signs closely (3) Guillain-Kake syndrome Is this a current diagnosis for this admission?: Yes Plan: Currently asymptomatic Continue monthly IVIG as outpatient (4) GERD (gastroesophageal reflux disease) Qualifiers: Esophagitis presence: without esophagitis Qualified Code(s): K21.9 - Gastro -esophageal reflux disease without esophagitis Is this a current diagnosis for this admission?: Yes Plan: Currently on IV pantoprazole (5) Hypothyroidism Is this a current diagnosis for this admission?: Yes Plan: Continue levothyroxine (6) COVID-19 virus infection Is this a current diagnosis for this admission?: Yes Plan: Patient was diagnosed about a month ago Has been stable and was cleared by health department Continues to require intranasal oxygen at 2 L CTA of the chest showed no PE but there were bilateral groundglass opacities consistent with COVID-19 infection Likely due to atelectasis, physical deconditioning and continued lung scarring from COVID-19 infection Incentive spirometry Continue intranasal oxygen, zinc, vitamin D, vitamin C supplements (7) Hypokalemia Is this a current diagnosis for this admission?: Yes Plan: Serum potassium was 3.1 present patient Replete with potassium chloride Monitor serum electrolytes and replete as necessary - Time Time Spent with patient: 35 or more minutes Total Critical Time (Minutes): 45 Medications reviewed and adjusted accordingly: Yes Anticipated Discharge Disposition: Home, Self Care Anticipated Discharge Timeframe: within 48 hours - Inpatient Certification Based on my medical assessment, after consideration of the patient's comorbidities, presenting symptoms, or acuity I expect that the services needed warrant INPATIENT care.: Yes I certify that my determination is in accordance with my understanding of Medicare's requirements for reasonable and necessary INPATIENT services [42 CFR 412.3e].: Yes Medical Necessity: Need Close Monitoring Due to Risk of Patient Decompensation, Need For IV Fluids, Risk of Complication if Not Cared For in Hospital Post Hospital Care: D/C or Transfer Summary
[2020-11-10 02:32] LABS: C-REACTIVE PROTEIN 53.4 mg/L (<10.0)
[2020-11-10 02:36] LABS: CREATINE KINASE < 20 U/L (30-135)
[2020-11-10 06:55] LABS: MEAN CORPUSCULAR HEMOGLOBIN 31.6 pg (27.0-33.4); MEAN CORPUSCULAR HGB CONC 34.5 g/dL (32.0-36.0); MEAN CORPUSCULAR VOLUME 91 fl (80-97); PLATELET COUNT 288 10^3/uL (150-450); WHITE BLOOD COUNT 4.6 10^3/uL (4.0-10.5)
[2020-11-10 08:34] LABS: ABSOLUTE LYMPHOCYTES# (MANUAL) 0.7 10^3/uL (0.5-4.7); ABSOLUTE MONOCYTES # (MANUAL) 0.2 10^3/uL (0.1-1.4); ANISOCYTOSIS SLIGHT; BASOPHILS % (MANUAL) 0 % (0-2); EOSINOPHILS % (MANUAL) 0 % (0-6); LYMPHOCYTES % (MANUAL) 15 % (13-45); MONOCYTES % (MANUAL) 5 % (3-13); SEGMENTED NEUTROPHILS % (MAN) 80 % (42-78); TOTAL CELLS COUNTED 100
[2020-11-10 08:35] LABS: OVALOCYTES SLIGHT; PLATELET COMMENT ADEQUATE; TOXIC GRANULATION SLIGHT
[2020-11-10] MEDS: ASCORBIC ACID 500 MG TABLET PO SCH ×2 (10:10→18:27)
[2020-11-10] MEDS: PANTOPRAZOLE SODIUM 40 MG VIAL IV SCH ×2 (10:10→21:54)
[2020-11-10] MEDS: ZINC SULFATE 220 MG CAPSULE PO SCH ×2 (10:10→10:22)
[2020-11-10] MEDS: CHOLECALCIFEROL (D3) 1,000 UNIT (25 MCG) TABLET PO SCH (10:10)
--- NOTE | 2020-11-10 11:54 | EKG REPORT ---
SEVERITY:- ABNORMAL ECG - SINUS RHYTHM PROBABLE LEFT ATRIAL ABNORMALITY LVH WITH SECONDARY REPOLARIZATION ABNORMALITY INFERIOR INFARCT, AGE INDETERMINATE : Confirmed by: Alejo Lu MD 10-Nov-2020 11:54:00
--- NOTE | 2020-11-10 15:20 | Progress Note ---
Provider Note Provider Note: Patient seen and examined by me. Please see full H&P by overnight physician for details of admission. Briefly, patient admitted for intractable nausea/vomiting with hematemesis. She was previously diagnosed with COVID-19 a few weeks ago and was cared for at home by healthcare worker family members. Reportedly, patient has not had any further hematemesis although she is still having intermittent vomiting. She has a large hiatal hernia seen on CTPA as well. When asked about this, patient states she believes she is having phlegm collects in the back of her throat which gags her and causes the vomiting. Will start Mucinex and N-acetylcysteine nebs to help break up the mucus. Hemoglobin is stable. Check UA to rule out urinary/infectious cause of vomiting.
[2020-11-10] MEDS: ACETYLCYSTEINE 20% SOLN 800 MG/4 ML VIAL.NEB NEB SCH (21:27)
[2020-11-11 06:59] LABS: HEMOGLOBIN 9.7 g/dL (12.0-15.5); MEAN CORPUSCULAR HEMOGLOBIN 31.6 pg (27.0-33.4); MEAN CORPUSCULAR HGB CONC 34.6 g/dL (32.0-36.0); MEAN CORPUSCULAR VOLUME 91 fl (80-97); PLATELET COUNT 265 10^3/uL (150-450); RED BLOOD COUNT 3.07 10^6/uL (3.72-5.28); RED CELL DISTRIBUTION WIDTH 14.9 % (11.5-14.0); WHITE BLOOD COUNT 4.9 10^3/uL (4.0-10.5)
[2020-11-11 07:29] LABS: ALBUMIN 2.4 g/dL (3.5-5.0); ALKALINE PHOSPHATASE 69 U/L (38-126); ANION GAP 6 (5-19); ASPARTATE AMINO TRANSFERASE 32 U/L (14-36); BILIRUBIN,DIRECT 0.4 mg/dL (0.0-0.4); BILIRUBIN,TOTAL 0.6 mg/dL (0.2-1.3); BLOOD UREA NITROGEN 19 mg/dL (7-20); CALCIUM 8.4 mg/dL (8.4-10.2); CARBON DIOXIDE 31 mmol/L (22-30); CHLORIDE 101 mmol/L (98-107); GLUCOSE 77 mg/dL (75-110); POTASSIUM 3.8 mmol/L (3.6-5.0); TOTAL PROTEIN 6.1 g/dL (6.3-8.2)
[2020-11-11 08:09] LABS: ABSOLUTE LYMPHOCYTES# (MANUAL) 2.4 10^3/uL (0.5-4.7); ABSOLUTE MONOCYTES # (MANUAL) 0.4 10^3/uL (0.1-1.4); BAND NEUTROPHILS % (MANUAL) 2 % (3-5); BASOPHILS % (MANUAL) 1 % (0-2); EOSINOPHILS % (MANUAL) 1 % (0-6); LYMPHOCYTES % (MANUAL) 46 % (13-45); MONOCYTES % (MANUAL) 8 % (3-13); SEGMENTED NEUTROPHILS % (MAN) 34 % (42-78); TOTAL CELLS COUNTED 100
[2020-11-11 08:10] LABS: ANISOCYTOSIS SLIGHT; POLYCHROMASIA SLIGHT
[2020-11-11 08:11] LABS: PLATELET COMMENT ADEQUATE
[2020-11-11 08:12] LABS: METAMYELOCYTES % (MANUAL) 3 % (0-1); MYELOCYTES % (MANUAL) 2 % (0)
[2020-11-11] MEDS: RINGERS SOLUTION,LACTATED 1,000 ML IV PRN ×2 (08:29→19:25)
[2020-11-11] MEDS ORDERED: IPRATROPIUM/ALBUTEROL 0.5-2.5 MG/3 ML AMPUL NEB ONE (08:32)
[2020-11-11] MEDS: ACETYLCYSTEINE 20% SOLN 800 MG/4 ML VIAL.NEB NEB SCH ×2 (08:34→21:35)
[2020-11-11] MEDS: ZINC SULFATE 220 MG CAPSULE PO SCH (10:35)
[2020-11-11] MEDS: CHOLECALCIFEROL (D3) 1,000 UNIT (25 MCG) TABLET PO SCH (10:35)
[2020-11-11] MEDS: PANTOPRAZOLE SODIUM 40 MG VIAL IV SCH ×2 (10:35→21:19)
[2020-11-11] MEDS: ASCORBIC ACID 500 MG TABLET PO SCH ×2 (10:35→17:15)
[2020-11-11 13:47] LABS: AMORPHOUS SEDIMENT,URINE 1+ /HPF; APPEARANCE,URINE TURBID; BILIRUBIN,URINE NEGATIVE (NEGATIVE); CALCIUM OXALATE CRYSTALS,URINE RARE /HPF; GLUCOSE, URINE NEGATIVE (NEGATIVE); KETONES,URINE 20 mg/dL (NEGATIVE); PROTEIN,URINE 100 mg/dL (NEGATIVE)
[2020-11-11 13:49] LABS: COLOR,URINE YELLOW
[2020-11-11] MEDS ORDERED: BISACODYL 5 MG TABEC PO ONE (15:30)
--- NOTE | 2020-11-11 17:38 | PDOC PROGRESS REPORT ---
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 She reports that the vomiting was initially of ingested matter but on the day of presentation she noticed streaks of bright red blood in her vomitus and presented to the ED for further evaluation. Patient was managed for COVID-19 at home by her granddaughter who is a nurse. She has been on 2 L intranasal oxygen at home for the past month and she states that she was cleared for COVID-19 from local health department. She denies any fever, chest pain, shortness of breath, palpitation, dizziness, diarrhea or any change in her urinary habits." 11/10/2020 Patient seen and examined by me. Please see full H&P by overnight physician for details of admission. Briefly, patient admitted for intractable nausea/vomiting with hematemesis. She was previously diagnosed with COVID-19 a few weeks ago and was cared for at home by healthcare worker family members. Reportedly, patient has not had any further hematemesis although she is still having intermittent vomiting. She has a large hiatal hernia seen on CTPA as well. When asked about this, patient states she believes she is having phlegm collects in the back of her throat which gags her and causes the vomiting. Will start Mucinex and N-acetylcysteine nebs to help break up the mucus. Hemoglobin is stable. Check UA to rule out urinary/infectious cause of vomiting. 11/11/2020 Patient is to be doing better today and she is currently breathing comfortably on room air. Her vomiting has completely stopped and she attributes this to her mucus thinning out substantially after using the Mucomyst and Mucinex. She has no bleeding from any source according the patient. We will advance her diet today to full liquid and if she tolerates that she can have a regular diet starting with breakfast tomorrow morning. Urinalysis showed some mild proteinuria with trace leukocyte esterase and some white blood cells. Does not appear overtly infected and patient has no urinary symptoms currently. I asked nursing to do a bladder scan and apparently the bladder scanner is broken and there are no prospects for fixing this anytime soon due to the holiday weekend. I think would be worthwhile to figure out if she is retaining urine or not given she has incontinence which could be overflow in etiology due to urinary retention. Reason For Visit: INTRACTABLE NAUSEA AND VOMITING,POSSIBLE UPPER GI Physical Exam Vital Signs: Temp Pulse Resp BP Pulse Ox 98.0 F 102 H 16 91/59 L 87 L 11/11/20 14:52 11/11/20 14:52 11/11/20 14:52 11/11/20 14:52 11/11/20 14:52 Intake & Output 11/10/20 11/11/20 11/12/20 06:59 06:59 06:59 Intake Total 1100 Balance 1100 Weight 49.4 kg 50.3 kg Exam: General appearance: PRESENT: no acute distress, well-developed, well-nourished, elderly white female seen in the Covid unit Head exam: PRESENT: atraumatic, normocephalic Eye exam: PRESENT: conjunctiva pink. ABSENT: scleral icterus Mouth exam: PRESENT: moist Respiratory exam: PRESENT: clear to auscultation pauly. ABSENT: rales, rhonchi, wheezes Cardiovascular exam: PRESENT: RRR. ABSENT: diastolic murmur, rubs, systolic murmur GI/Abdominal exam: PRESENT: normal bowel sounds, soft. ABSENT: distended, guarding, mass, organolmegaly, rebound, tenderness Neurological exam: PRESENT: alert, awake, oriented to person, oriented to place, oriented to time, oriented to situation Psychiatric exam: PRESENT: appropriate affect, normal mood Skin exam: PRESENT: dry, intact, warm Results Laboratory Results: 11/11/20 05:57 11/11/20 05:57 11/11/20 11/11/20 11/11/20 05:57 05:57 13:00 WBC 4.9 RBC 3.07 L Hgb 9.7 L Hct 28.0 L MCV 91 MCH 31.6 MCHC 34.6 RDW 14.9 H Plt Count 265 Seg Neutrophils % Not Reportable Sodium 137.5 Potassium 3.8 Chloride 101 Carbon Dioxide 31 H Anion Gap 6 BUN 19 Creatinine 0.43 L Est GFR ( Amer) > 60 Glucose 77 Calcium 8.4 Total Bilirubin 0.6 AST 32 Alkaline Phosphatase 69 Total Protein 6.1 L Albumin 2.4 L Urine Color YELLOW Urine Appearance TURBID Urine pH 8.0 Ur Specific [place] 1.020 Urine Protein 100 H Urine Glucose (UA) NEGATIVE Urine Ketones 20 H Urine Blood NEGATIVE Urine RBC (Auto) 5 11/10/20 02:03 Creatine Kinase < 20 L Impressions: Chest/Abdomen CTA 11/09/20 19:08 IMPRESSION: There are bilateral peripheral groundglass airspace opacities concerning atypical viral infection. No filling defect is seen to suggest a pulmonary artery embolism. Assessment and Plan - Diagnosis (1) COVID-19 virus infection Is this a current diagnosis for this admission?: Yes Plan: Per Previous Physician: "Patient was diagnosed about a month ago Has been stable and was cleared by health department Continues to require intranasal oxygen at 2 L CTA of the chest showed no PE but there were bilateral groundglass opacities consistent with COVID-19 infection Likely due to atelectasis, physical deconditioning and continued lung scarring from COVID-19 infection Incentive spirometry Continue intranasal oxygen, zinc, vitamin D, vitamin C supplements" Covid infection likely resolved at this point, no indication for acute treatment She will likely have a long extended recovery time from her viral pneumonia Breathing comfortably on room air (2) Nausea and vomiting Qualifiers: Vomiting Intractability: non-intractable Is this a current diagnosis for this admission?: Yes Plan: Per Previous Physician: "Patient presents with intractable nausea and vomiting She reports blood-streaked vomiting after prolonged period Of vomiting of ingested matter Might have a component of difficulty of swallowing as patient reports that she had a history of borderline dilation of the esophagus twice in the past Kept her n.p.o. Consider swallow eval Zofran/promethazine as needed for nausea vomiting" Vomiting and hematemesis completely stopped on 11/10, no recurrence Per patient, vomiting solely due to gagging on excessively thick profuse sputum Sputum thinned out with Mucomyst and Mucinex and vomiting completely resolved Needs follow-up with GI outpatient (3) Hypokalemia Is this a current diagnosis for this admission?: Yes Plan: Per Previous Physician: "Serum potassium was 3.1 present patient Replete with potassium chloride Monitor serum electrolytes and replete as necessary" Repleted (4) Hypothyroidism Is this a current diagnosis for this admission?: Yes (5) Upper GI bleed Is this a current diagnosis for this admission?: Yes Plan: Per Previous Physician: "Patient reports an episode of hematemesis after repeated vomiting of ingested matter Likely due to Teetee-Alvarado tear H&H on this presentation was 11.4/33.9 Continue trending CBC Kept n.p.o. Placed her on IV PPI Continue monitoring vital signs closely" Resolved (6) Vomiting Qualifiers: Vomiting type: unspecified Vomiting Intractability: intractable Nausea presence: with nausea Qualified Code(s): R11.2 - Nausea with vomiting, unspecified Is this a current diagnosis for this admission?: Yes (7) GERD (gastroesophageal reflux disease) Qualifiers: Esophagitis presence: without esophagitis Qualified Code(s): K21.9 - Gastro-esophageal reflux disease without esophagitis Is this a current diagnosis for this admission?: Yes Plan: PPI (8) Choking due to phlegm Qualifiers: Encounter type: initial encounter Qualified Code(s): T17.310A - Gastric contents in larynx causing asphyxiation, initial encounter Is this a current diagnosis for this admission?: Yes Plan: The cause of her vomiting, resolved - Time Time Spent with patient: 35 or more minutes Medications reviewed and adjusted accordingly: Yes Anticipated Discharge Disposition: Home with Home Health Anticipated Discharge Timeframe: within 24 hours - Inpatient Certification Based on my medical assessment, after consideration of the patient's comorbidities, presenting symptoms, or acuity I expect that the services needed warrant INPATIENT care.: Yes I certify that my determination is in accordance with my understanding of Medicare's requirements for reasonable and necessary INPATIENT services [42 CFR 412.3e].: Yes Medical Necessity: Significant Comorbidiites Make Outpatient Treatment Too Risky, Need Close Monitoring Due to Risk of Patient Decompensation, Risk of Complication if Not Cared For in Hospital, Risk of Diagnosis Which Will Require Inpatient Eval/Care/Monitoring
[2020-11-12 05:37] LABS: HEMATOCRIT 26.6 % (36.0-47.0); HEMOGLOBIN 9.4 g/dL (12.0-15.5); MEAN CORPUSCULAR HEMOGLOBIN 31.9 pg (27.0-33.4); MEAN CORPUSCULAR HGB CONC 35.3 g/dL (32.0-36.0); MEAN CORPUSCULAR VOLUME 90 fl (80-97); PLATELET COUNT 243 10^3/uL (150-450); RED BLOOD COUNT 2.95 10^6/uL (3.72-5.28); RED CELL DISTRIBUTION WIDTH 14.8 % (11.5-14.0); WHITE BLOOD COUNT 5.1 10^3/uL (4.0-10.5)
[2020-11-12 06:29] LABS: ANION GAP 5 (5-19); BLOOD UREA NITROGEN 11 mg/dL (7-20); CALCIUM 8.1 mg/dL (8.4-10.2); CARBON DIOXIDE 31 mmol/L (22-30); CHLORIDE 101 mmol/L (98-107); GLUCOSE 81 mg/dL (75-110); POTASSIUM 3.6 mmol/L (3.6-5.0)
[2020-11-12 06:31] LABS: ABSOLUTE LYMPHOCYTES# (MANUAL) 1.2 10^3/uL (0.5-4.7); ABSOLUTE MONOCYTES # (MANUAL) 0.9 10^3/uL (0.1-1.4); BAND NEUTROPHILS % (MANUAL) 2 % (3-5); BASOPHILS % (MANUAL) 0 % (0-2); EOSINOPHILS % (MANUAL) 1 % (0-6); LYMPHOCYTES % (MANUAL) 23 % (13-45); METAMYELOCYTES % (MANUAL) 1 % (0-1); MONOCYTES % (MANUAL) 17 % (3-13); SEGMENTED NEUTROPHILS % (MAN) 56 % (42-78); TOTAL CELLS COUNTED 100
[2020-11-12 06:33] LABS: ANISOCYTOSIS SLIGHT; OVALOCYTES SLIGHT; PLATELET COMMENT ADEQUATE; POIKILOCYTOSIS SLIGHT; STOMATOCYTES 1+
[2020-11-12] MEDS: RINGERS SOLUTION,LACTATED 1,000 ML IV PRN ×2 (06:40→18:16)
[2020-11-12] MEDS: ACETYLCYSTEINE 20% SOLN 800 MG/4 ML VIAL.NEB NEB SCH ×2 (07:42→20:10)
[2020-11-12] MEDS: IPRATROPIUM/ALBUTEROL 0.5-2.5 MG/3 ML AMPUL NEB PRN ×2 (07:42→20:10)
[2020-11-12] MEDS: CHOLECALCIFEROL (D3) 1,000 UNIT (25 MCG) TABLET PO SCH (09:31)
[2020-11-12] MEDS: PANTOPRAZOLE SODIUM 40 MG VIAL IV SCH ×2 (09:31→21:54)
[2020-11-12] MEDS: ASCORBIC ACID 500 MG TABLET PO SCH ×2 (09:31→18:16)
[2020-11-12] MEDS: ZINC SULFATE 220 MG CAPSULE PO SCH (09:31)
[2020-11-12] MEDS ORDERED: FUROSEMIDE 40 MG TABLET PO PRN (13:22)
--- NOTE | 2020-11-12 17:53 | PDOC PROGRESS REPORT ---
Subjective Date:: 11/12/20 Subjective:: No adverse events overnight. No new complaints. She says that since she got so me Mucinex and some fluids that she is able to clear her sputum much more easily, and has resolved she does not have any more nausea or gagging. She would like to have her diet advanced. Reason For Visit: INTRACTABLE NAUSEA AND VOMITING,POSSIBLE UPPER GI Physical Exam Vital Signs: Temp Pulse Resp BP Pulse Ox 98.4 F 95 16 159/71 H 94 11/12/20 15:59 11/12/20 15:59 11/12/20 15:59 11/12/20 15:59 11/12/20 15:59 Intake & Output 11/11/20 11/12/20 11/13/20 06:59 06:59 06:59 Intake Total 1999 890 Balance 1999 890 Weight 50.3 kg 50.3 kg General appearance: PRESENT: no acute distress, well-developed, well-nourished, elderly white female seen in the Covid unit Head exam: PRESENT: atraumatic, normocephalic Eye exam: PRESENT: conjunctiva pink. ABSENT: scleral icterus Mouth exam: PRESENT: moist Respiratory exam: PRESENT: clear to auscultation pauly. ABSENT: rales, rhonchi, wheezes Cardiovascular exam: PRESENT: RRR. ABSENT: diastolic murmur, rubs, systolic murmur GI/Abdominal exam: PRESENT: normal bowel sounds, soft. ABSENT: distended, guarding, mass, organolmegaly, rebound, tenderness Neurological exam: PRESENT: alert, awake, oriented to person, oriented to place, oriented to time, oriented to situation Psychiatric exam: PRESENT: appropriate affect, normal mood Skin exam: PRESENT: dry, intact, warm Results Laboratory Results: 11/12/20 05:17 11/12/20 05:17 11/12/20 11/12/20 05:17 05:17 WBC 5.1 RBC 2.95 L Hgb 9.4 L Hct 26.6 L MCV 90 MCH 31.9 MCHC 35.3 RDW 14.8 H Plt Count 243 Seg Neutrophils % Not Reportable Sodium 136.0 L Potassium 3.6 Chloride 101 Carbon Dioxide 31 H Anion Gap 5 BUN 11 Creatinine 0.44 L Est GFR ( Amer) > 60 Glucose 81 Calcium 8.1 L 11/10/20 02:03 Creatine Kinase < 20 L Impressions: Chest/Abdomen CTA 11/09/20 19:08 IMPRESSION: There are bilateral peripheral groundglass airspace opacities concerning atypical viral infection. No filling defect is seen to suggest a pulmonary artery embolism. Assessment and Plan - Diagnosis (1) Choking due to phlegm Qualifiers: Encounter type: initial encounter Qualified Code(s): T17.310A - Gastric contents in larynx causing asphyxiation, initial encounter Is this a current diagnosis for this admission?: Yes (2) GERD (gastroesophageal reflux disease) Qualifiers: Esophagitis presence: without esophagitis Qualified Code(s): K21.9 - Gastro-esophageal reflux disease without esophagitis Is this a current diagnosis for this admission?: Yes (3) Hypothyroidism Is this a current diagnosis for this admission?: Yes (4) Nausea and vomiting Qualifiers: Vomiting Intractability: non-intractable Is this a current diagnosis for this admission?: Yes - Plan Summary Summary: This patient does not have COVID-19. She previously had it, and has since cleared the infection. 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 We have given her some fluids and some Mucinex and she is able to clear her sputum much more easily. She is currently on oxygen but does not need to be. She is on 1 L and her oxygen saturations are in the mid to upper 90s. She is currently not on any active treatment for COVID-19, nor does she need to be at this time. We are advancing her diet today and anticipate discharge home in the morning. - Time Time Spent with patient: 15-24 minutes Anticipated Discharge Disposition: Home, Self Care Anticipated Discharge Timeframe: within 24 hours
[2020-11-13] MEDS: RINGERS SOLUTION,LACTATED 1,000 ML IV PRN (05:26)
[2020-11-13] MEDS ORDERED: LEVOTHYROXINE SODIUM 0.075 MG TABLET PO SCH (06:00)
[2020-11-13 07:17] LABS: ALBUMIN 2.4 g/dL (3.5-5.0); ALKALINE PHOSPHATASE 73 U/L (38-126); ANION GAP 5 (5-19); ASPARTATE AMINO TRANSFERASE 37 U/L (14-36); BILIRUBIN,DIRECT 0.4 mg/dL (0.0-0.4); BILIRUBIN,TOTAL 0.7 mg/dL (0.2-1.3); BLOOD UREA NITROGEN 5 mg/dL (7-20); CALCIUM 8.2 mg/dL (8.4-10.2); CARBON DIOXIDE 33 mmol/L (22-30); CHLORIDE 99 mmol/L (98-107); GLUCOSE 86 mg/dL (75-110); POTASSIUM 3.4 mmol/L (3.6-5.0); TOTAL PROTEIN 6.1 g/dL (6.3-8.2)
[2020-11-13] MEDS: ACETYLCYSTEINE 20% SOLN 800 MG/4 ML VIAL.NEB NEB SCH (08:32)
[2020-11-13] MEDS: CHOLECALCIFEROL (D3) 1,000 UNIT (25 MCG) TABLET PO SCH (09:16)
[2020-11-13] MEDS: ZINC SULFATE 220 MG CAPSULE PO SCH (09:18)
[2020-11-13] MEDS: ASCORBIC ACID 500 MG TABLET PO SCH (09:18)
[2020-11-13] MEDS ORDERED: ISOSORBIDE MONONITRATE 30 MG TAB.ER.24H PO SCH (10:00)
[2020-11-13] MEDS ORDERED: (PENDING PHARMACY ID) (Omeprazole [Omeprazole] 20 MG Capsule.Dr) PO SCH (10:00)
[2020-11-13] MEDS ORDERED: PANTOPRAZOLE SODIUM 20 MG TABLET.DR PO SCH (10:00)
[2020-11-13] MEDS ORDERED: ASPIRIN 81 MG TABLET, ENT COATED PO SCH (10:00)
[2020-11-13 13:36] VITALS: BP 90/52
--- NOTE | 2020-11-13 17:20 | PDOC DISCHARGE SUMMARY ---
Impression - Admit/DC Date/PCP Admission Date/Primary Care Provider: 11/10/20 16:22 TRISTON TYLER MD Discharge Date: 11/13/20 - Discharge Diagnosis (1) Choking due to phlegm Is this a current diagnosis for this admission?: Yes (2) GERD (gastroesophageal reflux disease) Is this a current diagnosis for this admission?: Yes (3) Hypothyroidism Is this a current diagnosis for this admission?: Yes (4) Nausea and vomiting Is this a current diagnosis for this admission?: Yes - Assessment Summary: This patient does not have COVID-19. She previously had it, and has since cleared the infection. 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 We have given her some fluids and some Mucinex and she is able to clear her sputum much more easily. She is currently on oxygen but does not need to be. She is on 1 L and her oxygen saturations are in the mid to upper 90s. She is currently not on any active treatment for COVID-19, nor does she need to be at this time. We are advancing her diet today and anticipate discharge home in the morning. - Additional Information Resuscitation Status: Full Code Discharge Diet: Regular Discharge Activity: Balance Activity w/Rest, Supervised Activity Referrals: EMORY SANTIAGO MD [ACTIVE STAFF] - Follow up as needed Home Medications: Aspirin [Ecotrin 81 mg EC Tablet] 81 mg PO DAILY 11/10/20 Benzonatate [Tessalon Perles 100 mg Capsule] 100 mg PO Q8HP PRN 11/10/20 Furosemide [Lasix 40 mg Tablet] 40 mg PO DAILYP PRN 11/10/20 Isosorbide Mononitrate [Imdur 30 mg Tablet.er] 30 mg PO DAILY 11/10/20 Levothyroxine Sodium [Synthroid 0.075 mg Tablet] 0.075 mg PO Q6AM 11/10/20 Omeprazole 20 mg PO DAILY 11/10/20 Ascorbic Acid [Vitamin C 500 mg Tablet] 500 mg PO BID tablet 11/13/20 Cholecalciferol (Vitamin D3) [Vitamin D3 1000 Unit Tablet] 2,000 unit PO DAILY tablet 11/13/20 Zinc Sulfate [Zinc-220 Capsule] 220 mg PO DAILY capsule 11/13/20 History of Present Illiness History of Present Illness: OSCAR HONEYCUTT is a 84 year old female with a history of [place] syndrome, hypothyroidism, GERD and hernia diagnosed for COVID-19 about a month ago now presents with intractable nausea and vomiting. She reports that the vomiting was initially of ingested matter but on the day of presentation she noticed streaks of bright red blood in her vomitus and presented to the ED for further evaluation. Patient was managed for COVID-19 at home by her granddaughter who is a nurse. She has been on 2 L intranasal oxygen at home for the past month and she states that she was cleared for COVID-19 from local health department. She denies any fever, chest pain, shortness of breath, palpitation, dizziness, diarrhea or any change in her urinary habits. Hospital Course Hospital Course: We did not treat her for COVID-19, because the acute phase of the disease is already passed, and that is not the main reason that she was here. She was still producing a lot of phlegm, likely due to low-grade inflammation and residual viral debris, and it was getting very thick and she was choking on it. She was given some fluids, Mucinex, and Mucomyst nebulizer treatments. These treatments were highly effective and she was not having any more production of phlegm. She was able to eat and drink regular diet without any difficulty. She was breathing on room air very comfortably. She will resume home health. Her labs and examination were reassuring and she was discharged in stable condition. Physical Exam Vital Signs: Temp Pulse Resp BP Pulse Ox 97.9 F 93 17 119/66 86 L 11/13/20 11:59 11/13/20 11:59 11/13/20 11:59 11/13/20 11:59 11/13/20 11:59 Intake & Output 11/12/20 11/13/20 11/14/20 06:59 06:59 06:59 Intake Total 1999 2890 260 Balance 1999 2890 260 Weight 50.3 kg 51.8 kg General appearance: PRESENT: no acute distress, well-developed, well-nourished, elderly white female Head exam: PRESENT: atraumatic, normocephalic Eye exam: PRESENT: conjunctiva pink. ABSENT: scleral icterus Mouth exam: PRESENT: moist Respiratory exam: PRESENT: clear to auscultation pauly. ABSENT: rales, rhonchi, wheezes Cardiovascular exam: PRESENT: RRR. ABSENT: diastolic murmur, rubs, systolic murmur GI/Abdominal exam: PRESENT: normal bowel sounds, soft. ABSENT: distended, guarding, mass, organolmegaly, rebound, tenderness Neurological exam: PRESENT: alert, awake, oriented to person, oriented to place, oriented to time, oriented to situation Psychiatric exam: PRESENT: appropriate affect, normal mood Skin exam: PRESENT: dry, intact, warm Results Laboratory Results: WBC 5.1 10^3/uL (4.0-10.5) 11/12/20 05:17 RBC 2.95 10^6/uL (3.72-5.28) L 11/12/20 05:17 Hgb 9.4 g/dL (12.0-15.5) L 11/12/20 05:17 Hct 26.6 % (36.0-47.0) L 11/12/20 05:17 MCV 90 fl (80-97) 11/12/20 05:17 MCH 31.9 pg (27.0-33.4) 11/12/20 05:17 MCHC 35.3 g/dL (32.0-36.0) 11/12/20 05:17 RDW 14.8 % (11.5-14.0) H 11/12/20 05:17 Plt Count 243 10^3/uL (150-450) 11/12/20 05:17 Lymph % (Auto) Not Reportable 11/12/20 05:17 [place] % (Auto) Not Reportable 11/12/20 05:17 Eos % (Auto) Not Reportable 11/12/20 05:17 Baso % (Auto) Not Reportable 11/12/20 05:17 Absolute Neuts (auto) Not Reportable 11/12/20 05:17 Absolute Lymphs (auto) Not Reportable 11/12/20 05:17 Absolute Monos (auto) Not Reportable 11/12/20 05:17 Absolute Eos (auto) Not Reportable 11/12/20 05:17 Absolute Basos (auto) Not Reportable 11/12/20 05:17 Total Counted 100 11/12/20 05:17 Seg Neutrophils % Not Reportable 11/12/20 05:17 Seg Neuts % (Manual) 56 % (42-78) 11/12/20 05:17 Band Neutrophils % 2 % (3-5) L 11/12/20 05:17 Lymphocytes % (Manual) 23 % (13-45) 11/12/20 05:17 Atypical Lymphs % 3 % (0) 11/11/20 05:57 Monocytes % (Manual) 17 % (3-13) H 11/12/20 05:17 Eosinophils % (Manual) 1 % (0-6) 11/12/20 05:17 Basophils % (Manual) 0 % (0-2) 11/12/20 05:17 Metamyelocytes % 1 % (0-1) 11/12/20 05:17 Myelocytes % 2 % (0) H 11/11/20 05:57 Abs Neuts (Manual) 3.0 10^3/uL (1.7-8.2) 11/12/20 05:17 Abs Lymphs (Manual) 1.2 10^3/uL (0.5-4.7) 11/12/20 05:17 Abs Monocytes (Manual) 0.9 10^3/uL (0.1-1.4) 11/12/20 05:17 Absolute Eos (Manual) 0.1 10^3/uL (0.0-0.6) 11/12/20 05:17 Abs Basophils (Manual) 0.0 10^3/uL (0.0-0.2) 11/12/20 05:17 Toxic Granulation SLIGHT 11/10/20 06:15 Toxic Vacuolation PRESENT 11/09/20 18:45 Platelet Comment ADEQUATE 11/12/20 05:17 Polychromasia SLIGHT 11/11/20 05:57 Poikilocytosis SLIGHT 11/12/20 05:17 Basophilic Stippling PRESENT 11/11/20 05:57 Anisocytosis SLIGHT 11/12/20 05:17 Ovalocytes SLIGHT 11/12/20 05:17 Stomatocytes 1+ 11/12/20 05:17 D-Dimer 1.17 ug/mL (0.00-0.50) H 11/10/20 02:03 Sodium 136.5 mmol/L (137-145) L 11/13/20 05:10 Potassium 3.4 mmol/L (3.6-5.0) L 11/13/20 05:10 Chloride 99 mmol/L (98-107) 11/13/20 05:10 Carbon Dioxide 33 mmol/L (22-30) H 11/13/20 05:10 Anion Gap 5 (5-19) 11/13/20 05:10 BUN 5 mg/dL (7-20) L 11/13/20 05:10 Creatinine 0.45 mg/dL (0.52-1.25) L 11/13/20 05:10 Est GFR ( Amer) > 60 (>60) 11/13/20 05:10 Est GFR (MDRD) Non-Af > 60 (>60) 11/13/20 05:10 Glucose 86 mg/dL (75-110) 11/13/20 05:10 Calcium 8.2 mg/dL (8.4-10.2) L 11/13/20 05:10 Magnesium 2.0 mg/dL (1.6-2.3) 11/10/20 02:03 Ferritin 49.30 ng/mL (11.1-264.0) 11/10/20 02:03 Total Bilirubin 0.7 mg/dL (0.2-1.3) 11/13/20 05:10 Direct Bilirubin 0.4 mg/dL (0.0-0.4) 11/13/20 05:10 Neonat Total Bilirubin Not Reportable 11/13/20 05:10 Neonat Direct Bilirubin Not Reportable 11/13/20 05:10 Neonat Indirect Bili Not Reportable 11/13/20 05:10 AST 37 U/L (14-36) H 11/13/20 05:10 ALT 13 U/L (<35) 11/13/20 05:10 Alkaline Phosphatase 73 U/L (38-126) 11/13/20 05:10 Lactate Dehydrogenase 223 U/L (120-246) 11/10/20 02:03 Creatine Kinase < 20 U/L (30-135) L 11/10/20 02:03 C-Reactive Protein 53.4 mg/L (<10.0) H 11/10/20 02:03 Total Protein 6.1 g/dL (6.3-8.2) L 11/13/20 05:10 Albumin 2.4 g/dL (3.5-5.0) L 11/13/20 05:10 Lipase 168.7 U/L (23-300) 11/09/20 18:45 Urine Color YELLOW 11/11/20 13:00 Urine Appearance TURBID 11/11/20 13:00 Urine pH 8.0 (5.0-9.0) 11/11/20 13:00 Ur Specific [place] 1.020 11/11/20 13:00 Urine Protein 100 mg/dL (NEGATIVE) H 11/11/20 13:00 Urine Glucose (UA) NEGATIVE mg/dL (NEGATIVE) 11/11/20 13:00 Urine Ketones 20 mg/dL (NEGATIVE) H 11/11/20 13:00 Urine Blood NEGATIVE (NEGATIVE) 11/11/20 13:00 Urine Nitrite (Reflex) NEGATIVE (NEGATIVE) 11/11/20 13:00 Urine Bilirubin NEGATIVE (NEGATIVE) 11/11/20 13:00 Urine Urobilinogen 4.0 mg/dL (<2.0) H 11/11/20 13:00 Leukocyte Esterase Rfl TRACE (NEGATIVE) H 11/11/20 13:00 Urine RBC (Auto) 5 /HPF 11/11/20 13:00 Urine WBC (Reflex) 10 /HPF 11/11/20 13:00 Squamous Epi Cells Auto 7 /HPF 11/11/20 13:00 Calcium Oxalate Cr Auto RARE /HPF 11/11/20 13:00 Amorphous Sediment Auto 1+ /HPF 11/11/20 13:00 Urine Mucus (Auto) FEW /LPF 11/11/20 13:00 Urine Ascorbic Acid 40 (NEGATIVE) H 11/11/20 13:00 Influenza A (RT-PCR) NEGATIVE (NEGATIVE) 11/09/20 23:13 Influenza B (RT-PCR) NEGATIVE (NEGATIVE) 11/09/20 23:13 RSV (RT-PCR) NEGATIVE (NEGATIVE) 11/09/20 23:13 SARS-CoV-2 Rap RNA(RT-PCR) POSITIVE (NEGATIVE) H 11/09/20 23:13 Blood Type A POSITIVE 11/09/20 19:56 Antibody Screen NEGATIVE 11/09/20 19:56 Impressions: Chest/Abdomen CTA 11/09/20 19:08 IMPRESSION: There are bilateral peripheral groundglass airspace opacities concerning atypical viral infection. No filling defect is seen to suggest a pulmonary artery embolism. Plan Time Spent: Greater than 30 Minutes Stroke Is this a Stroke Patient?: No Acute Heart Failure Is this a Heart Failure Patient?: No
[2020-11-14 11:42] LABS: PATH REVIEW PATHOLOGIST REVIEWED
== END 2020-11-13 14:09 | disposition home health service (06) | DRG 204 ==
LOC: ER 18:28 → EH 11-10 01:42 → INTOOBSV 11-10 01:42 → 3S 11-10 06:50 → OBSVTOIN 11-10 16:22
PROVIDERS: ADMIT Student in an Organized Health Care Education/Training Program; ATTEND Family Medicine
DX: R09.3 Abnormal sputum (principal); G61.0 Guillain-Barre syndrome; K92.0 Hematemesis; B94.8 Sequelae of other specified infectious and parasitic diseases; R09.89 Other specified symptoms and signs involving the circulatory and respiratory systems; R11.2 Nausea with vomiting, unspecified; E03.9 Hypothyroidism, unspecified; K44.9 Diaphragmatic hernia without obstruction or gangrene; K21.9 Gastro-esophageal reflux disease without esophagitis; E78.5 Hyperlipidemia, unspecified; I50.9 Heart failure, unspecified; E87.6 Hypokalemia; M19.90 Unspecified osteoarthritis, unspecified site; Z96.653 Presence of artificial knee joint, bilateral; I11.0 Hypertensive heart disease with heart failure; Z79.899 Other long term (current) drug therapy; Z88.0 Allergy status to penicillin; Z88.2 Allergy status to sulfonamides; Z88.1 Allergy status to other antibiotic agents; Z88.3 Allergy status to other anti-infective agents; Z91.012 Allergy to eggs; Z79.890 Hormone replacement therapy; Z99.81 Dependence on supplemental oxygen
CPT/HCPCS: 36415; 71275; 80048; 80053; 81001; 82550; 82728; 83615; 83690; 83735; 85025; 85379; 86140; 86850; 86900; 86901; 93005; 93010; 96361; 96374; 96375; 96376; 99285; 0241U; C9113; C9803; G0378; J1100; J2405; J3480; J3490; J7120